=== PATIENT | male | born 1945 | race Caucasian/White ===

== ENCOUNTER 2017-04-02 18:39 | Emergency (ER) | payer MEDICARE, OTHER ==
[~2017-04-02] VITALS: Ht 172.7 cm; Wt 84.0 kg
[2017-04-02 19:07] VITALS: BP 142/72; PULSE 63; RESP 18; TEMP 98.2; O2SAT 99
[2017-04-02] MEDS ORDERED: ALLO300T2 PO (19:20)
[2017-04-02] MEDS ORDERED: LISI-515 PO (19:20)
[2017-04-02] MEDS ORDERED: OMEP20TA93 PO (19:20)
[2017-04-02] MEDS ORDERED: METH2.5T PO (19:20)
--- NOTE | 2017-04-02 20:27 | PD ---
HPI Chief Complaint: Musculoskeletal Complaint Time Seen by Provider: 19:45 Travel History International Travel<30 days: No Contact w/Intl Traveler<30days: No Traveled to known affect area: No History of Present Illness HPI This is a 71-year-old male here with left wrist pain after he had a mechanical trip and fall falling onto an outstretched hand. Patient fell to the ground injuring his left wrist and also contusing his left chest wall. He denies head injury or loss of consciousness. Patient is not anticoagulated. He denies headache, visual changes, neck pain, chest pain, shortness of breath, abdominal pain, paresthesia or weakness of extremity. His pain is localized to the wrist which is worse with movement and relieved with rest. PFSH Past Medical History Medical History: Denies Significant Hx Cerebrovascular Accident: Yes Diminished Hearing: No Hypertension: Yes Medical other: Yes (gout) Immunizations Current: No Tetanus Vaccination: Unknown Influenza Vaccination: No Past Surgical History Surgical History: No Previous Surgery Social History Alcohol Use: Yes (8-10 week) Tobacco Use: No Substance Use: No Allergies-Medications (Allergen,Severity, Reaction): Coded Allergies: No Known Allergies (Verified Allergy, Unknown, 04/02/17) Reported Meds & Prescriptions Reported Meds & Active Scripts Active [place] (Hydrocodone-Acetaminophen) 5 Mg-325 Mg Tab 1 Tab PO Q6H PRN Reported Methotrexate 2.5 Mg Tab 2.5 Mg PO WED,TU Allopurinol 300 Mg Tab 300 Mg PO DAILY Omeprazole 20 Mg Tab 20 Mg PO DAILY Lisinopril 20 Mg Tab 20 Mg PO DAILY Review of Systems Except as stated in HPI: all other systems reviewed are Neg General / Constitutional: No: Fever Eyes: No: Visual changes HENT: No: Headaches Cardiovascular: No: Chest Pain or Discomfort Respiratory: No: Shortness of Breath Gastrointestinal: No: Abdominal Pain Genitourinary: No: Dysuria Physical Exam Narrative GENERAL: Alert and well-appearing 71 year old male. SKIN: Warm and dry. HEAD: Normocephalic. Atraumatic EYES: No injection or drainage. NECK: Supple, trachea midline. No cervical midline tenderness CARDIOVASCULAR: Regular rate and rhythm without murmurs, gallops, or rubs. Mild left anterior chest wall tenderness. No crepitus felt. RESPIRATORY: Breath sounds equal bilaterally. No accessory muscle use. GASTROINTESTINAL: Abdomen soft, non-tender, nondistended. MUSCULOSKELETAL: No cyanosis, or edema. Left upper extremity: Notable swelling and mild tenderness to the wrist medial aspect. No deformity. 2+ radial pulse. Patient is able to flex and extend the wrist although this elicits pain. Normal sensation of the fingers. Brisk cap refill. BACK: Nontender without obvious deformity. No CVA tenderness. Data Data Last Documented VS Vital Signs Date Time Temp Pulse Resp B/P (MAP) Pulse Ox O2 Delivery O2 Flow Rate FiO2 04/02/17 19:07 98.2 63 18 142/72 (95) 99 Orders Orders Wrist, Complete ([id number]) (04/02/17 ) Chest, Single Ap (04/02/17 ) Splint Or Brace Apply/Monitor (04/02/17 20:31) [facility] Medical Decision Making Medical Screen Exam Complete: Yes Emergency Medical Condition: Yes Differential Diagnosis Wrist Fracture, contusion, sprain. Rib fracture versus contusion versus pneumothorax Narrative Course 71-year-old male here with left wrist and left chest wall pain after he fell from a standing position. The patient is well-appearing. The extremity is neurovascularly intact. Left wrist x-ray: Nondisplaced Distal radius fracture Chest x-ray: Normal chest Findings discussed with patient and family. Patient put in a sugar tong splint. Instructed to the follow-up with orthopedic. Patient is stable and ready for discharge Diagnosis Primary Impression: Distal radius fracture, left Qualified Codes: S52.502A - Unspecified fracture of the lower end of left radius, initial encounter for closed fracture Additional Impression: Chest wall contusion Qualified Codes: S20.212A - Contusion of left front wall of thorax, initial encounter Referrals: Kaz Cantu MD Orthopedist Additional Instructions: Splint in place until follow-up with orthopedic Pain medication as prescribed. Ice and elevate the extremity. Return if he developed new or worsening symptoms. Scripts Hydrocodone-Acetaminophen ([place]) 5 Mg-325 Mg Tab 1 TAB PO Q6H Y for PAIN, #12 TAB 0 Refills Prov: Janet Finnegan 04/02/17 Disposition: 01 DISCHARGE HOME Condition: Stable Janet Finnegan Apr 02, 2017 20:27
[2017-04-02] MEDS ORDERED: NORC5TAB PO (20:33)
--- NOTE | 2017-04-02 21:03 | RADRPT ---
EXAM DATE/TIME: 04/02/2017 20:10 [facility] COMPARISON: No previous studies available for comparison. INDICATIONS : Left lateral wrist pain post fall. MEDICAL HISTORY : None. SURGICAL HISTORY : None. ENCOUNTER: Initial ACUITY: 1 day PAIN SCORE: 3/10 LOCATION: Left upper extremity FINDINGS: There is a mildly displaced fracture of the distal radius. No dislocation. No other fractures are linda ntified. CONCLUSION: 1. Mildly displaced fracture of the distal radius. Rashaad Maria MD on April 02, 2017 at 20:59 Board Certified Radiologist. This report was verified electronically.
--- NOTE | 2017-04-02 21:04 | RADRPT ---
EXAM DATE/TIME: 04/02/2017 20:10 [facility] COMPARISON: No previous studies available for comparison. INDICATIONS : Anterior chest pain post fall. MEDICAL HISTORY : None. SURGICAL HISTORY : None. ENCOUNTER: Initial ACUITY: 1 day PAIN SCORE: 3/10 LOCATION: Bilateral chest FINDINGS: A single view of the chest demonstrates the lungs to be symmetrically aerated without evidence of mas s, infiltrate or effusion. The cardiomediastinal contours are unremarkable. Osseous structures are intact. CONCLUSION: 1. No active disease. Minimal linear scarring right lung base. Rashaad Maria MD on April 02, 2017 at 21:01 Board Certified Radiologist. This report was verified electronically.
== END 2017-04-02 21:25 | disposition home or self-care (01) ==
LOC: PHEFT 18:39
DX: S52.502A Unspecified fracture of the lower end of left radius, initial encounter for closed fracture (principal); S20.212A Contusion of left front wall of thorax, initial encounter; I10 Essential (primary) hypertension; M10.9 Gout, unspecified; W01.0XXA Fall on same level from slipping, tripping and stumbling without subsequent striking against object, initial encounter; Z86.73 Personal history of transient ischemic attack (TIA), and cerebral infarction without residual deficits; Z79.899 Other long term (current) drug therapy
CPT/HCPCS: 71045; 73110; 99283

== ENCOUNTER 2017-05-19 13:01 | Inpatient (IN) | payer OTHER, MEDICARE ==
[~2017-05-19] VITALS: Ht 175.3 cm; Wt 86.1 kg
[~2017-05-19 13:01] MED LIST: ALLO300T2 PO; LISI-515 PO; METH2.5T PO; NORC5TAB PO; OMEP20TA93 PO
[2017-05-19] MEDS ORDERED: SODIUM CHLOR 0.9% 1000 ML INJ 1,000 ML IV ONE (13:02)
[2017-05-19 13:03] VITALS: BP 175/82; PULSE 67; RESP 13; O2SAT 97
[2017-05-19 13:05] VITALS: O2SAT 97
[2017-05-19 13:14] VITALS: O2SAT 97
--- NOTE | 2017-05-19 13:18 | RADRPT ---
EXAM DATE/TIME: 05/19/2017 13:06 [facility] COMPARISON: No previous studies available for comparison. INDICATIONS : Stroke Alert- left sided weakness and slurred speech. RADIATION DOSE: 52.83 CTDIvol (mGy) This report was called by Dr. Winn to Dr. Cummins at 1: 13 PM on 05/19/17. MEDICAL HISTORY : Hypertension. SURGICAL HISTORY : Non-responsive. ENCOUNTER: Initial ACUITY: 1 day PAIN SCALE: Non-responsive LOCATION: Bilateral cranial TECHNIQUE: Multiple contiguous axial images were obtained of the head. Using automated exposure control and adj ustment of the mA and/or kV according to patient size, radiation dose was kept as low as reasonably a chievable to obtain optimal diagnostic quality images. DICOM format image data is available electro nically for review and comparison. FINDINGS: No acute hemorrhage, acute infarct, midline shift or extra-axial fluid collections are noted. The ania tricles, sulci and cisterns are normal in size shape and position for the patient's age. There is an old lacunar infarct involving the right chavarria radiata. Periventricular white matter small vessel isc hemic changes are noted bilaterally. The bone windows are unremarkable. CONCLUSION: 1. No acute hemorrhage, acute infarct, mass effect or extra-axial fluid collection. 2. Periventricular white matter small vessel ischemic changes bilaterally. 3. Old lacunar infarct within the right chavarria radiata. Christofer Winn MD on May 19, 2017 at 13:12 Board Certified Radiologist. This report was verified electronically.
[2017-05-19] MEDS ORDERED: IODIXANOL 320 MG/ML 10 ML VIAL (for Rad CT) IVCONTRAST ONE (13:20)
[2017-05-19 13:22] LABS: AUTOMATED NEUTROPHIL # 3.4 TH/MM3 (1.8-7.7); BASOPHIL % 0.8 % (0.0-2.0); EOSINOPHIL # 0.2 TH/MM3 (0-0.4); EOSINOPHIL % 3.3 % (0.0-4.0); HEMOGLOBIN 14.4 GM/DL (13.0-17.0); LYMPH % 19.7 % (9.0-44.0); MEAN CELL VOLUME 92.4 FL (80.0-100.0); MEAN CORPUSCULAR HEMOGLOBIN 31.7 PG (27.0-34.0); MEAN CORPUSCULAR HGB CONC 34.3 % (32.0-36.0); MEAN PLATELET VOLUME 8.1 FL (7.0-11.0); MONO % 9.7 % (0.0-8.0); MONOCYTE # 0.5 TH/MM3 (0-0.9); NEUT % 66.5 % (16.0-70.0); PLATELET COUNT 189 TH/MM3 (150-450); RED BLOOD COUNT 4.54 MIL/MM3 (4.50-5.90)
[2017-05-19] MEDS ORDERED: ALTEPLASE DRIP IV ONE (13:30)
[2017-05-19] MEDS ORDERED: ALTEPLASE BOLUS 9 MG/9 ML SYR IV ONE (13:30)
[2017-05-19] MEDS ORDERED: SODIUM CHLORIDE 0.9% 50 ML BAG IVF ONE (13:30)
[2017-05-19] MEDS ORDERED: niCARdipine INJ 25 MG in SODIUM CHLOR 0.9% 250 ML INJ 240 ML IV PRN (13:30)
[2017-05-19] MEDS ORDERED: MISCELLANEOUS NURSING INFORMATION XX PRN (13:30)
[2017-05-19] MEDS ORDERED: LABETALOL HCL 100 MG/20 ML VIAL IV PUSH ONE (13:30)
--- NOTE | 2017-05-19 13:30 | RADRPT ---
EXAM DATE/TIME: 05/19/2017 13:06 [facility] COMPARISON: No previous studies available for comparison. INDICATIONS : Stroke Alert- Left sided weakness and slurred speech. IV CONTRAST: 73 cc Visipaque (iodixanol) IV RADIATION DOSE: 9.83 CTDIvol (mGy) ; Combined studies MEDICAL HISTORY : Hypertension. SURGICAL HISTORY : Non-responsive. ENCOUNTER: Initial ACUITY: 1 day PAIN SCALE: Non-responsive LOCATION: Bilateral cranial TECHNIQUE: Volumetric scanning was performed using a multi-row detector CT scanner. The data was post processed with a variety of visualization algorithms including full volume maximum intensity projection, multi -planar sliding thin slab reformation, curved planar reformation, and surface rendering techniques. Using automated exposure control and adjustment of the mA and/or kV according to patient size, radiat ion dose was kept as low as reasonably achievable to obtain optimal diagnostic quality images. DICO M format image data is available electronically for review and comparison. FINDINGS: There is excellent visualization of the major intracranial arteries out to the second-order branch ve ssels. There is no evidence for aneurysm, significant narrowing, or vessel truncation. Mild diffuse narrowing of the left proximal posterior artery is noted. No evidence for vascular malformation. CONCLUSION: Mild diffuse narrowing of the left proximal posterior cerebral artery is noted. Christofer Winn MD on May 19, 2017 at 13:23 Board Certified Radiologist. This report was verified electronically.
[2017-05-19 13:32] LABS: PROTHROMBIN TIME - PATIENT 10.2 SEC (9.8-11.6)
--- NOTE | 2017-05-19 13:42 | RADRPT ---
EXAM DATE/TIME: 05/19/2017 13:19 [facility] COMPARISON: No previous studies available for comparison. INDICATIONS : Stroke alert. MEDICAL HISTORY : Hypertension. SURGICAL HISTORY : None. ENCOUNTER: Initial ACUITY: 1 day PAIN SCORE: 0/10 LOCATION: Bilateral chest FINDINGS: A single view of the chest demonstrates the lungs to be symmetrically aerated without evidence of mas s, infiltrate or effusion. Minimal basilar atelectasis. The cardiomediastinal contours are unremarkab le. Osseous structures are intact. CONCLUSION: 1. Minimal basilar atelectasis. No effusion or pneumothorax. Rashaad Maria MD on May 19, 2017 at 13:36 Board Certified Radiologist. This report was verified electronically.
--- NOTE | 2017-05-19 13:54 | RADRPT ---
EXAM DATE/TIME: 05/19/2017 13:06 [facility] COMPARISON: CTA BRAIN W 3D RECON, May 19, 2017, 13:06. INDICATIONS : Stroke Alert- Left sided weakness and slurred speech. IV CONTRAST: 73 cc Visipaque (iodixanol) IV RADIATION DOSE: 9.83 CTDIvol (mGy) ; Combined studies MEDICAL HISTORY : Hypertension. SURGICAL HISTORY : Non-responsive. ENCOUNTER: Initial ACUITY: 1 day PAIN SCALE: Non-responsive LOCATION: Left cranial Elevated flow velocities and ICA/CCA ratios have been found to correlate with increased degrees of vessel stenosis, calculated as percentage of diameter relative to a normal segment of distal ICA/CCA. TECHNIQUE: Volumetric scanning was performed using a multirow detector CT scanner. The data was post processed with a variety of visualization algorithms including full-volume maximum intensity projection, multip lanar sliding thin-slab reformation, curved-planar reformation, and surface-rendering techniques. Us ing automated exposure control and adjustment of the mA and/or kV according to patient size, radiatio n dose was kept as low as reasonably achievable to obtain optimal diagnostic quality images. DICOM f ormat image data is available electronically for review and comparison. FINDINGS: AORTIC ARCH: Two-vessel bovine type arch anatomy. No mild calcified plaque at the origin of the left subclavian ar michelle without significant flow-limiting stenosis. RIGHT CAROTID: The common carotid artery is intact. Bulky eccentric calcified plaque extending from the distal carot id bulb the origin of the internal carotid artery with resultant approximate 50% stenosis. Internal c arotid artery is otherwise patent to the skull base. The external carotid artery is intact. LEFT CAROTID: The common carotid artery is intact. The carotid bulb has a normal configuration without ulceration or narrowing. Tandem mild calcified plaque in the origin of the internal carotid artery with resultan t less than 10% stenosis. Mild plaque in the origin of the external carotid artery with resultant les s than 10% stenosis. VERTEBRALS: Mild plaque at the origin of the vertebral arteries with [id number] stenosis of the left verteb ral origin. CONCLUSION: 1. Bulky eccentric calcified plaque extending from the distal right carotid bulb to the origin of the internal carotid artery with resultant 50% stenosis. 2. Mild left carotid plaque without significant flow limiting stenosis. 3. Mild to moderate stenosis of the left vertebral artery origin secondary to calcified plaque. Leonides Alvarez MD on May 19, 2017 at 13:44 Board Certified Radiologist. This report was verified electronically.
--- NOTE | 2017-05-19 14:02 | PD.CONS ---
History of Present Illness Service Neurology Consult Requested By er Reason for Consult stroke alert Primary Care Physician Unknown History of Present Illness 71 y/o m called for stroke alert for speech changes. time of onset approx 45 mins prior to er arrival. difficulty getting words out and left facial weakness. ct brain naicp. visiting from [place]. hx of similar symptoms 20 years ago that resolved. does not take antiplatelets daily. bp 170's/80's in er. glucose 95. took 2 aspirin today. denies any headache/neck pain. no vision loss or focal weakness. PFSH Past Medical History tia/stroke, htn, psoriasis Past Surgical History Surgical History: No Previous Surgery Social History Alcohol Use: Yes (8-10 week) Tobacco Use: No Substance Use: No Allergies-Medications (Allergen,Severity, Reaction): Coded Allergies: No Known Allergies (Verified Allergy, Unknown, 04/02/17) Reported Meds & Prescriptions Reported Meds & Active Scripts Active [place] (Hydrocodone-Acetaminophen) 5 Mg-325 Mg Tab 1 Tab PO Q6H PRN Reported Methotrexate 2.5 Mg Tab 2.5 Mg PO WED,TU Allopurinol 300 Mg Tab 300 Mg PO DAILY Omeprazole 20 Mg Tab 20 Mg PO DAILY Lisinopril 20 Mg Tab 20 Mg PO DAILY Review of Systems Except as stated in HPI: all other systems reviewed are Neg Review of Systems All other ROS: ROS reviewed as documented in chart Past Family Social History Allergies: Coded Allergies: No Known Allergies (Verified Allergy, Unknown, 04/02/17) Active Ordered Medications Current Medications Medications (Trade) Dose Ordered Sig/Amarilys Route Start Time Stop Time Status Last Admin Sodium Chloride 1,000 ml @ 70 mls/hr [id number] ONCE IV 05/19/17 13:02 05/20/17 03:19 05/19/17 13:13 Nicardipine HCl 25 mg/Sodium Chloride 250 ml @ 50 mls/hr TITRATE PRN IV 05/19/17 13:30 Alteplase, Recombinant 71.5 mg/Syringe / Bag 71.5 ml @ 71.5 mls/hr ONCE ONCE IV 05/19/17 13:30 05/19/17 14:29 05/19/17 13:34 Miscellaneous Information No Heparin, Warfarin, Aspir... UNSCH PRN XX 05/19/17 13:30 05/20/17 13:29 Exam I&O / VS Vital Signs Date Time Temp Pulse Resp B/P (MAP) Pulse Ox O2 Delivery O2 Flow Rate FiO2 05/19/17 13:14 97 21 05/19/17 13:05 97 05/19/17 13:05 Nasal Cannula 2.00 05/19/17 13:03 67 13 175/82 (113) 97 General: Alert and Oriented, No acute distress Eye: EOMI Respiratory: Non-labored respirations Cardiology: Normal rate Neurologic: Alert, Oriented, Normal sensory, Normal motor, Normal DTR's Psychiatric: Cooperative, Appropriate mood & affect, Normal judgement Exam Comments alert, ox 3, follows, mild dysarthric speech, eomi, vff, able to name objects, left lower facial weakness, no drift no ataxia, sensory nml, no neglect, nihss 2 Review/Management Diagnosis/Plan: (1) Acute lacunar stroke ICD Codes: I63.9 - Cerebral infarction, unspecified Status: Acute Plan: probable lacunar infarct suspect 2/2 chronic htn/small vessel dz r/o partial sz recs tx options d/w pt. he wants iv tpa and understands his nihss is low and he has a good chance of complete recovery. he understands this and 65 chance of ich and elects for tx. he states a friend of his had it 3 weeks ago for stroke and it helped him. post-tpa order set bp <180/100 scd's stroke w/u therapy eval follow exam (2) HTN (hypertension) ICD Codes: I10 - Essential (primary) hypertension Status: Chronic Plan: keep <180/100 (3) Psoriasis ICD Codes: L40.9 - Psoriasis, unspecified Status: Chronic Plan: on mtx Problem Qualifiers (1) HTN (hypertension): Qualified Codes: I10 - Essential (primary) hypertension Irving Castro MD May 19, 2017 14:02
[2017-05-19 14:35] LABS: TROPONIN I LESS THAN 0.02 NG/ML (0.02-0.05)
--- NOTE | 2017-05-19 14:36 | PD ---
HPI Chief Complaint: Stroke Alert Time Seen by Provider: 13:02 Travel History International Travel<30 days: No Contact w/Intl Traveler<30days: No Traveled to known affect area: No History of Present Illness HPI Patient is a 71 year old male BIBEMS as a stroke alert. He was at the dog track when he was outside with his friend and he noticed he was having difficulty speaking. He says he had a stroke 20 years ago with the same symptoms, but the symptoms had completely resolved. Symptoms started about 45 minutes prior to arrival. He only has a history of high blood pressure, he denies any blood thinner use. He denies any other symptoms and was in his usual state of health prior to the onset. Severity is moderate. PFSH Past Medical History Cerebrovascular Accident: Yes Diminished Hearing: No Hypertension: Yes Immunizations Current: No Tetanus Vaccination: Unknown Influenza Vaccination: No Past Surgical History Surgical History: Unable to Obtain Social History Alcohol Use: Yes (8-10 week) Tobacco Use: No Substance Use: No Allergies-Medications (Allergen,Severity, Reaction): Coded Allergies: No Known Allergies (Verified Allergy, Unknown, 04/02/17) Reported Meds & Prescriptions Reported Meds & Active Scripts Active Reported Methotrexate 2.5 Mg Tab 2.5 Mg PO MON,TUE Lisinopril 20 Mg Tab 20 Mg PO DAILY Review of Systems Except as stated in HPI: all other systems reviewed are Neg General / Constitutional: No: Fever, Chills Eyes: No: Blurred Vision HENT: No: Headaches, Lightheadedness Cardiovascular: No: Chest Pain or Discomfort Respiratory: No: Shortness of Breath Gastrointestinal: No: Nausea, Vomiting Musculoskeletal: No: Myalgias Skin: No Rash Neurologic: Positive: Focal Abnormalities, Slurred Speech Physical Exam Narrative GENERAL: Awake and alert, in no acute distress. SKIN: Warm and dry. HEAD: Atraumatic. Normocephalic. EYES: Pupils equal and round. No scleral icterus. EOMI. ENT: Mucous membranes pink and moist. NECK: Trachea midline. No JVD. CARDIOVASCULAR: Regular rate and rhythm. RESPIRATORY: No accessory muscle use. Clear to auscultation. Breath sounds equal bilaterally. GASTROINTESTINAL: Abdomen soft, non-tender, nondistended. MUSCULOSKELETAL: Extremities without clubbing, cyanosis, or edema. No obvious deformities. NEUROLOGICAL: Awake and alert. Left sided facial droop. Slurring of speech. Equal motor strength, however, left wrist is injured and weak because of this. PSYCHIATRIC: Appropriate mood and affect; insight and judgment normal. Data Data Last Documented VS Vital Signs Date Time Temp Pulse Resp B/P (MAP) Pulse Ox O2 Delivery O2 Flow Rate FiO2 05/19/17 13:14 97 21 05/19/17 13:05 Nasal Cannula 2.00 05/19/17 13:03 67 13 175/82 (113) Orders Orders Diet Npo (05/19/17 Lunch) Activity Bed Rest (05/19/17 ) Electrocardiogram (05/19/17 ) I-Stat Profile (05/19/17 13:02) Prothrombin Time / Inr (Pt) (05/19/17 13:02) Act Partial Throm Time (Ptt) (05/19/17 13:02) Complete Blood Count With Diff (05/19/17 13:02) Fibrinogen (05/19/17 13:02) Creatine Kinase (Cpk) (05/19/17 13:02) Troponin I (05/19/17 13:02) Ua Includes Microscopic (05/19/17 13:02) Drug Screen, Random Urine (05/19/17 13:02) Type And Screen (05/19/17 13:02) Ct Brain W/O Iv Contrast(Rout) (05/19/17 ) Chest, Single Ap (05/19/17 ) Cta Brain W Iv Contrast W 3d (05/19/17 13:02) Cta Neck W Iv Contrast W 3d (05/19/17 13:02) Consult Neurology (05/19/17 ) Blood Glucose (05/19/17 13:02) Ecg Monitoring (05/19/17 13:02) Neuro Checks Q2HX12,Q4H (05/19/17 13:02) Nursing Bedside Swallow Assess .ONCE (05/19/17 13:02) Iv Access Insert/Monitor (05/19/17 13:02) NPO (05/19/17 13:02) Oximetry (05/19/17 13:02) Resp Oxygen Nc Stroke (05/19/17 ) Sodium Chlor 0.9% 1000 Ml Inj (Ns 1000 M (05/19/17 13:02) Cath For Specimen (05/19/17 13:02) (Hub Use Only)Inp Phy Cons/Ref (05/19/17 ) Iodixanol 320 Inj (Rad Ct) (Visipaque 32 (05/19/17 13:20) Labetalol Inj (Trandate Inj) (05/19/17 13:30) Nicardipine Inj (Cardene Inj) (05/19/17 13:30) ^ Call Pharmacy (05/19/17 13:22) Nih Stroke Scale - Nihss .ONCE (05/19/17 13:22) Urinary Catheter Insert/Apply (05/19/17 13:22) Anticoagulant Alert (05/19/17 13:22) ^ Post Infusion Restrictions (05/19/17 13:) ^ Medication Alert (05/19/17 13:) Vital Signs (Adult) .As directed (05/19/17:) Notify Dr: Blood Pressure (05/19/17 13:22) ^ Medication Alert (05/19/17 13:22) Alteplase Bolus (Activase Bolus) (05/19/17 13:30) Alteplase Drip (Activase Drip) (05/19/17 13:30) Sodium Chloride 0.9% Inj (Ns Inj) (05/19/17 13:30) Misc Nursing Information (05/19/17 13:30) Resp Oxygen Nc Stroke (05/19/17 ) Eeg Study (05/19/17 ) Mri Brain W/O Contrast (05/19/17 ) Speech Therapy Consult-Eval/Tx (05/19/17 14:02) Ot Request For Service (05/19/17 14:02) Consult Pt Eval & Tx Oob (05/19/17 14:02) Scd Bilateral/Knee High LUIS.QSHIFT (05/19/17 14:02) Westergren Sedimentation Rate (05/19/17 14:02) Vitamin B12 (05/19/17 14:02) Thyroid Stimulating Hormone (05/19/17 14:02) Lipid Profile (05/19/17 14:02) Hemoglobin (Hgb) A1c (05/19/17 14:02) Echo 2d Comp With Doppler (05/19/17 ) Labs Laboratory Tests Test 05/19/17 13:10 White Blood Count 5.0 TH/MM3 Red Blood Count 4.54 MIL/MM3 Hemoglobin 14.4 GM/DL Bedside Hemoglobin 15.3 G/DL Hematocrit 42.0 % Bedside Hematocrit 45.0 % Mean Corpuscular Volume 92.4 FL Mean Corpuscular Hemoglobin 31.7 PG Mean Corpuscular Hemoglobin Concent 34.3 % Red Cell Distribution Width 17.0 % Platelet Count 189 TH/MM3 Mean Platelet Volume 8.1 FL Neutrophils (%) (Auto) 66.5 % Lymphocytes (%) (Auto) 19.7 % Monocytes (%) (Auto) 9.7 % Eosinophils (%) (Auto) 3.3 % Basophils (%) (Auto) 0.8 % Neutrophils # (Auto) 3.4 TH/MM3 Lymphocytes # (Auto) 1.0 TH/MM3 Monocytes # (Auto) 0.5 TH/MM3 Eosinophils # (Auto) 0.2 TH/MM3 Basophils # (Auto) 0.0 TH/MM3 CBC Comment DIFF FINAL Differential Comment Prothrombin Time 10.2 SEC Prothromb Time International Ratio 1.0 RATIO Activated Partial Thromboplast Time 26.6 SEC Fibrinogen 301 mg/dL Bedside Sodium 137 MMOL/L Bedside Potassium 4.1 MMOL/L Bedside Chloride 103 MMOL/L Bedside Blood Urea Nitrogen 19 MG/DL Bedside Creatinine 1.1 MG/DL Bedside Glucose 95 MG/DL Total Creatine Kinase U/L [facility] Medical Decision Making Medical Screen Exam Complete: Yes Emergency Medical Condition: Yes Medical Record Reviewed: Yes Interpretation(s) ECG shows NSR at 66, no ST elevation or depression Differential Diagnosis CVA vs TIA vs ICH Narrative Course Patient is a 71 year old male BIBEMS as a stroke alert. Exam shows left sided facial droop and slurring of speech. IV established, labs sent. Patient taken for CT, which showed no evidence of bleed. Patient consented for TPA after discussion of risks and benefits. He was given 1 dose of Labetalol 20mg for elevated blood pressure. Labs show no acute abnormalities. Patient monitored on TPA with some improvement of his symptoms. He will be admitted for further management. Last 24 hours Impressions Neck CTA 05/19/17 1302 Signed Impressions: Service Date/Time: Friday, May 19, 2017 13:06 - CONCLUSION: 1. Bulky eccentric calcified plaque extending from the distal right carotid bulb to the origin of the internal carotid artery with resultant 50%% stenosis. 2. Mild left carotid plaque without significant flow limiting stenosis. 3. Mild to moderate stenosis of the left vertebral artery origin secondary to calcified plaque. Leonides Alvarez MD Head CTA 05/19/17 1302 Signed Impressions: Service Date/Time: Friday, May 19, 2017 13:06 - CONCLUSION: Mild diffuse narrowing of the left proximal posterior cerebral artery is noted. Christofer Winn MD Head CT 05/19/17 0000 Signed Impressions: Service Date/Time: Friday, May 19, 2017 13:06 - CONCLUSION: 1. No acute hemorrhage, acute infarct, mass effect or extra-axial fluid collection. 2. Periventricular white matter small vessel ischemic changes bilaterally. 3. Old lacunar infarct within the right chavarria radiata. Christofer Winn MD Chest X-Ray 05/19/17 0000 Signed Impressions: Service Date/Time: Friday, May 19, 2017 13:19 - CONCLUSION: 1. Minimal basilar atelectasis. No effusion or pneumothorax. Rashaad Maria MD Critical Care Narrative Aggregate critical care time was 40 minutes. Time to perform other separately billable procedures was not included in the critical care time. My time did not include minutes spent treating any other patients simultaneously or on activities that did not directly contribute to the patient's treatment. The services I provided to this patient were to treat and/or prevent clinically significant deterioration that could result in: Serious illness or I provided critical care services requiring my management, as noted below: Chart data review, documentation time, medication orders and management, vital sign assessments/reviewing monitor data, ordering and reviewing lab tests, ordering and interpreting/reviewing x-rays and diagnostic studies, care of the patient and discussion of the patient with the admitting physicians. Diagnosis Primary Impression: CVA (cerebral vascular accident) Qualified Codes: I63.9 - Cerebral infarction, unspecified Admitting Information Admitting Physician Requests: Admit Gudelia Cummins MD May 19, 2017 14:36
--- NOTE | 2017-05-19 15:27 | HHI.HP ---
HPI Service Critical Care Medicine Primary Care Physician Unknown Admission Diagnosis CVA Diagnosis: Travel History International Travel<30 Days: No Contact w/Intl Traveler <30 Da: No Traveled to Known Affected Are: No History of Present Illness HPI Patient is a 71 year old male BIBEMS as a stroke alert. He was at the dog track when he was outside with his friend and he noticed he was having difficulty speaking. He says he had a stroke 20 years ago with the same symptoms, but the symptoms had completely resolved. Symptoms started about 45 minutes prior to arrival. He only has a history of high blood pressure, he denies any blood thinner use. He denies any other symptoms and was in his usual state of health prior to the onset. CT done in the ER was negative for bleed. Patient was administered IV TPA and evaluated by neurology. Patient is being admitted by critical care medicine service to the ICU. I evaluated the patient in the ER. At that time he was laying in the ER stretcher appeared comfortable and not in any acute distress. According to him his speech was significantly better and per his his facial weakness also appeared to be improving. He denied any weakness in either extremities. Denied any loss of consciousness or nausea vomiting headache visual disturbance. History was obtained by discussion with patient and his as well as reviewing records and discussion with ER physician. History PFSH Past Medical History Cerebrovascular Accident: Yes Diminished Hearing: No Hypertension: Yes Immunizations Current: No Tetanus Vaccination: Unknown Influenza Vaccination: No Past Surgical History Surgical History: Unable to Obtain Social History Alcohol Use: Yes (8-10 week) Tobacco Use: No Substance Use: No Allergies-Medications Allergies-Medications (Allergen,Severity, Reaction): Coded Allergies: No Known Allergies (Verified Allergy, Unknown, 04/02/17) Reported Meds & Prescriptions Reported Meds & Active Scripts Active Reported Methotrexate 2.5 Mg Tab 2.5 Mg PO MON,TUE Lisinopril 20 Mg Tab 20 Mg PO DAILY ROS Review of Systems Except as stated in HPI: all other systems reviewed are Neg General / Constitutional: No: Fever, Chills Eyes: No: Blurred Vision HENT: No: Headaches, Lightheadedness Cardiovascular: No: Chest Pain or Discomfort Respiratory: No: Shortness of Breath Gastrointestinal: No: Nausea, Vomiting Musculoskeletal: No: Myalgias Skin: No Rash Neurologic: Positive: Focal Abnormalities, Slurred Speech Past Family Social History Allergies: Coded Allergies: No Known Allergies (Verified Allergy, Unknown, 04/02/17) Physical Exam Vital Signs Vital Signs Date Time Temp Pulse Resp B/P (MAP) Pulse Ox O2 Delivery O2 Flow Rate FiO2 05/19/17 13:14 97 21 05/19/17 13:05 97 05/19/17 13:05 Nasal Cannula 2.00 05/19/17 13:03 67 13 175/82 (113) 97 Physical Exam Narrative GENERAL: Awake and alert, in no acute distress. SKIN: Warm and dry. HEAD: Atraumatic. Normocephalic. EYES: Pupils equal and round. No scleral icterus. EOMI. ENT: Mucous membranes pink and moist. NECK: Trachea midline. No JVD. CARDIOVASCULAR: Regular rate and rhythm. RESPIRATORY: No accessory muscle use. Clear to auscultation. Breath sounds equal bilaterally. GASTROINTESTINAL: Abdomen soft, non-tender, nondistended. MUSCULOSKELETAL: Extremities without clubbing, cyanosis, or edema. No obvious deformities. NEUROLOGICAL: Awake and alert. Left sided facial droop. Slurring of speech. Equal motor strength, however, left wrist is injured and weak because of this. PSYCHIATRIC: Appropriate mood and affect; insight and judgment normal. Laboratory Laboratory Tests Test 05/19/17 13:10 White Blood Count 5.0 Red Blood Count 4.54 Hemoglobin 14.4 Bedside Hemoglobin 15.3 Hematocrit 42.0 Bedside Hematocrit 45.0 Mean Corpuscular Volume 92.4 Mean Corpuscular Hemoglobin 31.7 Mean Corpuscular Hemoglobin Concent 34.3 Red Cell Distribution Width 17.0 Platelet Count 189 Mean Platelet Volume 8.1 Neutrophils (%) (Auto) 66.5 Lymphocytes (%) (Auto) 19.7 Monocytes (%) (Auto) 9.7 Eosinophils (%) (Auto) 3.3 Basophils (%) (Auto) 0.8 Neutrophils # (Auto) 3.4 Lymphocytes # (Auto) 1.0 Monocytes # (Auto) 0.5 Eosinophils # (Auto) 0.2 Basophils # (Auto) 0.0 CBC Comment DIFF FINAL Differential Comment Prothrombin Time 10.2 Prothromb Time International Ratio 1.0 Activated Partial Thromboplast Time 26.6 Fibrinogen 301 Bedside Sodium 137 Bedside Potassium 4.1 Bedside Chloride 103 Bedside Blood Urea Nitrogen 19 Bedside Creatinine 1.1 Bedside Glucose 95 Total Creatine Kinase 92 Troponin I LESS THAN 0.02 Result Diagram: 05/19/17 1310 Imaging Last Impressions Neck CTA 05/19/17 1302 Signed Impressions: Service Date/Time: Friday, May 19, 2017 13:06 - CONCLUSION: 1. Bulky eccentric calcified plaque extending from the distal right carotid bulb to the origin of the internal carotid artery with resultant 50%% stenosis. 2. Mild left carotid plaque without significant flow limiting stenosis. 3. Mild to moderate stenosis of the left vertebral artery origin secondary to calcified plaque. Leonides Alvarez MD Head CTA 05/19/17 1302 Signed Impressions: Service Date/Time: Friday, May 19, 2017 13:06 - CONCLUSION: Mild diffuse narrowing of the left proximal posterior cerebral artery is noted. Christofer Winn MD Head CT 05/19/17 0000 Signed Impressions: Service Date/Time: Friday, May 19, 2017 13:06 - CONCLUSION: 1. No acute hemorrhage, acute infarct, mass effect or extra-axial fluid collection. 2. Periventricular white matter small vessel ischemic changes bilaterally. 3. Old lacunar infarct within the right chavarria radiata. Christofer Winn MD Chest X-Ray 05/19/17 0000 Signed Impressions: Service Date/Time: Friday, May 19, 2017 13:19 - CONCLUSION: 1. Minimal basilar atelectasis. No effusion or pneumothorax. Rashaad Maria MD Capbuddyi VTE Risk Assessment Caprini VTE Risk Assessment: Mod/High Risk (score >= 2) Caprini Risk Assessment Model Point Value = 1 Point Value = 2 Point Value = 3 Point Value = 5 Age 41-60 Minor surgery BMI > 25 kg/m2 Swollen legs Varicose veins or History of unexplained or recurrent spontaneous Oral contraceptives or hormone replacement Sepsis (< 1 month) Serious lung disease, including pneumonia (< 1 month) Abnormal pulmonary function Acute myocardial infarction Congestive heart failure (< 1 month) History of inflammatory bowel disease Medical patient at bed rest Age 61-74 Arthroscopic surgery Major open surgery (> 45 min) Laparoscopic surgery (> 45 min) Malignancy Confined to bed (> 72 hours) Immobilizing plaster cast Central venous access Age >= 75 History of VTE Family history of VTE Factor V Leiden Prothrombin [id number] Lupus anticoagulant Anticardiolipin antibodies Elevated serum homocysteine Heparin-induced thrombocytopenia Other congenital or acquired thrombophilia Stroke (< 1 month) Elective arthroplasty Hip, pelvis, or leg fracture Acute spinal cord injury (< 1 month) Prophylaxis Regimen Total Risk Factor Score Risk Level Prophylaxis Regimen 0-1 Low Early ambulation 2 Moderate Order ONE of the following: *Sequential Compression Device (SCD) *Heparin 5000 units SQ BID 3-4 Higher Order ONE of the following medications: *Heparin 5000 units SQ TID *Enoxaparin/Lovenox 40 mg SQ daily (WT < 150 kg, CrCl > 30 mL/min) *Enoxaparin/Lovenox 30 mg SQ daily (WT < 150 kg, CrCl > 10-29 mL/min) *Enoxaparin/Lovenox 30 mg SQ BID (WT < 150 kg, CrCl > 30 mL/min) AND/OR *Sequential Compression Device (SCD) 5 or more Highest Order ONE of the following medications: *Heparin 5000 units SQ TID (Preferred with Epidurals) *Enoxaparin/Lovenox 40 mg SQ daily (WT < 150 kg, CrCl > 30 mL/min) *Enoxaparin/Lovenox 30 mg SQ daily (WT < 150 kg, CrCl > 10-29 mL/min) *Enoxaparin/Lovenox 30 mg SQ BID (WT < 150 kg, CrCl > 30 mL/min) AND *Sequential Compression Device (SCD) Assessment and Plan Assessment and Plan 71-year-old male with: Ischemic stroke status post thrombolysis Hypertension History of psoriasis Plan: Neuro: Admitted to [facility]. Status post TPA. Follow neuro checks per stroke protocol Stroke workup in progress. CTA revealed 50% right ICA stenosis. Further recommendations per neurology. Repeat head CT in 24 hours. Awaiting MRI brain. Neurology consulted and following. Cardiovascular: IV hydration, labetalol when necessary to keep SBP below 1 80 mmHg. Nicardipine drip if needed. Pulmonary: Supplemental O2 to keep O2 sat over 94% as needed GI/liver: Advance diet following speech and swallow evaluation further recommendations. Renal/: IV hydration, follow intake output, monitor and replete electro lites , follow BUN/creatinine. ID: No indication for antibiotics at this time Heme: Follow CBC Skin: Continue methotrexate for psoriasis Endocrine: Watch for hyperglycemia, SSI for glycemic control if needed. Prophylaxis: SCDs. No heparin or Lovenox till cleared by neurology. Patient will be transferred to hospitalist service tomorrow if doing well. Devyn Jackson MD May 19, 2017 15:27
[2017-05-19] MEDS ORDERED: DEXTROSE 50% IN WATER 50 ML VIAL(D50) IV PUSH PRN (15:30)
[2017-05-19] MEDS ORDERED: LABETALOL HCL 100 MG/20 ML VIAL IV PUSH PRN (15:30)
[2017-05-19] MEDS ORDERED: GLUCAGON 1 MG/ML VIAL OTHER PRN (15:30)
[2017-05-19] MEDS ORDERED: SODIUM CHLORIDE 0.9% FLUSH 10 ML FLUSH IV FLUSH PRN (15:30)
[2017-05-19 15:48] LABS: CHOLESTEROL 210 MG/DL (120-200); TRIGLYCERIDES 358 MG/DL (42-150)
[2017-05-19 16:21] LABS: CHOLESTEROL/ HDL RATIO 4.29 RATIO; HDL CHOLESTEROL 48.9 MG/DL (40.0-60.0); LDL CHOLESTEROL 90 MG/DL (0-99)
[2017-05-19 16:41] LABS: HEMOGLOBIN A1C 5.4 % (4.3-6.0)
[2017-05-19 16:43] VITALS: BP 142/71
[2017-05-19] MEDS: INSULIN ASPART SUPPLEMENTAL SCALE SQ SCH ×2 (17:00→21:00)
[2017-05-19 17:06] LABS: BILIRUBIN, URINE NEG (NEG); BLOOD, URINE NEG (NEG); GLUCOSE,URINE NEG (NEG); KETONE, URINE NEG (NEG); NITRITE,URINE NEG (NEG); PH, URINE 5.5 (5.0-8.5); URINE COLOR LIGHT-YELLOW (YELLW/STRAW); URINE LEUKOCYTE ESTERASE NEG (NEG)
--- NOTE | 2017-05-19 17:26 | RADRPT ---
EXAM DATE/TIME: 05/19/2017 16:57 [place] COMPARISON: No previous studies available for comparison. INDICATIONS : Slurred speech. Left facial droop. CVA. MEDICAL HISTORY : Hypertension. Cerebrovascular disease. SURGICAL HISTORY : Bilateral knee arthroscopy. ENCOUNTER: Subsequent ACUITY: 1 day PAIN SCORE: 0/10 LOCATION: head. TECHNIQUE: Multiplanar, multisequence MRI of the brain was performed without contrast. FINDINGS: There is a subacute small infarct in the posterior right frontal lobe. Remote lacunar infarct present in right chavarria radiata. Mild white matter ischemic changes. No intracranial mass, hemorrhage or shift. No hydrocephalus. No abnormal extra-axial fluid collection s. CONCLUSION: 1. Small subacute infarct in the posterior right frontal lobe without evidence for mass, hemorrhage. Remote lacunar infarct right chavarria radiata. Minimal white matter ischemic change. Rashaad Maria MD on May 19, 2017 at 17:18 Board Certified Radiologist. This report was verified electronically.
[2017-05-19] MEDS: SODIUM CHLORIDE 0.9% FLUSH 10 ML FLUSH IV FLUSH SCH (21:00)
[2017-05-19] MEDS ORDERED: ATORVASTATIN 10 MG TAB PO SCH (21:00)
[2017-05-19 23:00] VITALS: PULSE 59
[2017-05-20] MEDS: INSULIN ASPART SUPPLEMENTAL SCALE SQ SCH ×4 (08:00→21:00)
[2017-05-20 08:15] VITALS: PULSE 56
[2017-05-20] MEDS: SODIUM CHLORIDE 0.9% FLUSH 10 ML FLUSH IV FLUSH SCH ×2 (09:00→23:27)
--- NOTE | 2017-05-20 09:19 | HHI.PR ---
Review/Management Diagnosis/Plan: (1) Acute lacunar stroke ICD Codes: I63.9 - Cerebral infarction, unspecified Status: Acute Plan: lacunar infarct; mri brain + rt high dwi infarct rt carotid 50% stenosis suspect 2/2 chronic htn/small vessel dz vs rt carotid moderate hld recs repeat ct brain per protocol increase statin dose Dr. Barney kearney of rt carotid will obtain carotid u/s as well echo pending full therapy d/w pt/spouse follow exam (2) HTN (hypertension) ICD Codes: I10 - Essential (primary) hypertension Status: Chronic Plan: keep <180/100 (3) Psoriasis ICD Codes: L40.9 - Psoriasis, unspecified Status: Chronic Plan: on mtx Subjective Subjective Comments No acute events reported feels better No headache No chest pain No dyspnea Active Medications Current Medications Medications (Trade) Dose Ordered Sig/Amarilys Route Start Time Stop Time Status Last Admin Nicardipine HCl 25 mg/Sodium Chloride 250 ml @ 50 mls/hr TITRATE PRN IV 05/19/17 13:30 Miscellaneous Information No Heparin, Warfarin, Aspir... UNSCH PRN XX 05/19/17 13:30 05/20/17 13:29 (NS Flush) 2 ml BID IV FLUSH 05/19/17 21:00 05/20/17 09:00 (NS Flush) 2 ml UNSCH PRN IV FLUSH 05/19/17 15:30 (Trandate Inj) 10 mg Q2H PRN IV PUSH 05/19/17 15:30 (Lipitor) 10 mg HS PO 05/19/17 21:00 (NovoLOG SUPPLEMENTAL SCALE) 1 ACHS SQ 05/19/17 17:00 (D50w (Vial) Inj) 50 ml UNSCH PRN IV PUSH 05/19/17 15:30 (Glucagon Inj) 1 mg UNSCH PRN OTHER 05/19/17 15:30 Allergies Allergies Coded Allergies No Known Allergies (Verified Allergy, Unknown, 04/02/17) Review of Systems All other ROS: ROS reviewed as documented in chart Exam I&O / VS Vital Signs Date Time Temp Pulse Resp B/P (MAP) Pulse Ox O2 Delivery O2 Flow Rate FiO2 05/19/17 23:00 59 05/19/17 19:00 99 Room Air 05/19/17 16:43 67 17 142/71 (94) 100 05/19/17 13:14 97 21 05/19/17 13:05 97 05/19/17 13:05 Nasal Cannula 2.00 05/19/17 13:03 67 13 175/82 (113) 97 General: Alert and Oriented, No acute distress Eye: EOMI Respiratory: Non-labored respirations Cardiology: Normal rate Neurologic: Alert, Oriented, Normal sensory, Normal motor, Normal DTR's Psychiatric: Cooperative, Appropriate mood & affect, Normal judgement Exam Comments alert, ox 3, follows, speech more fluent, eomi, vff, able to name objects, no drift no ataxia, sensory nml, no neglect, nihss 1 Objective Micro and Labs Laboratory Tests Test 05/19/17 13:10 05/19/17 16:30 05/19/17 17:45 White Blood Count 5.0 Red Blood Count 4.54 Hemoglobin 14.4 Bedside Hemoglobin 15.3 Hematocrit 42.0 Bedside Hematocrit 45.0 Mean Corpuscular Volume 92.4 Mean Corpuscular Hemoglobin 31.7 Mean Corpuscular Hemoglobin Concent 34.3 Red Cell Distribution Width 17.0 Platelet Count 189 Mean Platelet Volume 8.1 Neutrophils (%) (Auto) 66.5 Lymphocytes (%) (Auto) 19.7 Monocytes (%) (Auto) 9.7 Eosinophils (%) (Auto) 3.3 Basophils (%) (Auto) 0.8 Neutrophils # (Auto) 3.4 Lymphocytes # (Auto) 1.0 Monocytes # (Auto) 0.5 Eosinophils # (Auto) 0.2 Basophils # (Auto) 0.0 CBC Comment DIFF FINAL Differential Comment Erythrocyte Sedimentation Rate 3 Prothrombin Time 10.2 Prothromb Time International Ratio 1.0 Activated Partial Thromboplast Time 26.6 Fibrinogen 301 Bedside Sodium 137 Bedside Potassium 4.1 Bedside Chloride 103 Bedside Blood Urea Nitrogen 19 Bedside Creatinine 1.1 Bedside Glucose 95 Hemoglobin A1c 5.4 Total Creatine Kinase 92 Troponin I LESS THAN 0.02 Triglycerides Level 358 Cholesterol Level 210 LDL Cholesterol 90 HDL Cholesterol 48.9 Cholesterol/HDL Ratio 4.29 Vitamin B12 Level 523 Thyroid Stimulating Hormone 3rd Gen 3.840 Urine Color LIGHT-YELLOW Urine Turbidity CLEAR Urine pH 5.5 Urine Specific [place] 1.021 Urine Protein NEG Urine Glucose (UA) NEG Urine Ketones NEG Urine Occult Blood NEG Urine Nitrite NEG Urine Bilirubin NEG Urine Urobilinogen LESS THAN 2.0 Urine Leukocyte Esterase NEG Urine RBC LESS THAN 1 Urine Opiates Screen NEG Urine Barbiturates Screen NEG Urine Amphetamines Screen NEG Urine Benzodiazepines Screen NEG Urine Cocaine Screen NEG Urine Cannabinoids Screen NEG Nasal Screen MRSA (PCR) MRSA NOT DETECTED Problem Qualifiers (1) HTN (hypertension): Qualified Codes: I10 - Essential (primary) hypertension Irving Castro MD May 20, 2017 09:19
--- NOTE | 2017-05-20 11:53 | MG ---
cc: Irving Castro MD EEG RECORD #[id number] A 71-year-old, history of difficulty with speech, previous occurrence. 8-9 Hz alpha activity, 20-50 microvolts observed. Good anterior to posterior gradient. Attenuation background slowing with transition into drowsy state. Stage I sleep with vertex waves. Bilateral temporal slowing. sharp transients of drowsiness. Tiny sharp transients, epoch 87. Single EKG showing sinus rhythm. INTERPRETATION: Normal awake, sleep electroencephalogram. Clinical correlation. Irving Castro MD MG/rt , 08:49 PM , 09:03 PM MTDD
--- NOTE | 2017-05-20 13:54 | EKG ---
Date Performed: 05/19/2017 Time Performed: 13:26:49 PTAGE: 71 years EKG: Sinus rhythm NORMAL ECG PREVIOUS TRACING : 01/22/2003 04.46 DOCTOR: Corina Castillo Interpretating Date/Time 05/20/2017 13:51:13
--- NOTE | 2017-05-20 14:45 | PD.CAR.PN ---
CVT Progress Note Subjective/Hospital Course: Patient with stroke post TPA lysis Bulky 50% carotid stenosis of the right common and proximal internal carotid artery Depending on today's repeat scan, in all likelihood will go ahead with surgery on Wednesday Full consult dictated Thanks J Objective: Vital Signs Date Time Temp Pulse Resp B/P (MAP) Pulse Ox O2 Delivery O2 Flow Rate FiO2 05/20/17 08:15 99 Room Air 05/20/17 08:15 56 05/19/17 23:00 59 05/19/17 19:00 99 Room Air 05/19/17 16:43 67 17 142/71 (94) 100 Result Diagram: 05/19/17 1310 Brando Abraham MD May 20, 2017 14:45
[2017-05-20 15:00] VITALS: PULSE 68
--- NOTE | 2017-05-20 15:04 | RADRPT ---
EXAM DATE/TIME: 05/20/2017 14:20 [facility] COMPARISON: No previous studies available for comparison. INDICATIONS : Follow up 25 hours post TPA RADIATION DOSE: 47.12 CTDIvol (mGy) MEDICAL HISTORY : Hypertension. SURGICAL HISTORY : None. ENCOUNTER: Initial ACUITY: 2 days PAIN SCALE: 0/10 LOCATION: cranial TECHNIQUE: Multiple contiguous axial images were obtained of the head. Using automated exposure control and adj ustment of the mA and/or kV according to patient size, radiation dose was kept as low as reasonably a chievable to obtain optimal diagnostic quality images. DICOM format image data is available electro nically for review and comparison. FINDINGS: CEREBRUM: The ventricles are normal for age. No evidence of midline shift, mass lesion, hemorrhage or acute in farction. No extra-axial fluid collections are seen. POSTERIOR FOSSA: The cerebellum and brainstem are intact. The 4th ventricle is midline. The cerebellopontine angle i s unremarkable. EXTRACRANIAL: The visualized portion of the orbits is intact. SKULL: The calvaria is intact. No evidence of skull fracture. CONCLUSION: 1. No acute intracranial abnormalities. Rashaad Maria MD on May 20, 2017 at 14:58 Board Certified Radiologist. This report was verified electronically.
--- NOTE | 2017-05-20 15:26 | HHI.CCPN ---
Subjective Remarks/Hospital Course 05/20: Patient is a 71 year old male BIBEMS as a stroke alert. [place] the [place] he was outside with his friend and he noticed he was having difficulty speaking. He says he had a stroke 20 years ago with the same symptoms, but the symptoms had completely resolved. Symptoms started about 45 minutes prior to arrival. He only has a history of high blood pressure, he denies any blood thinner use. He denies any other symptoms and was in his usual state of health prior to the onset. CT done in the ER was negative for bleed. Patient was administered IV TPA and evaluated by neurology. Patient is being admitted by critical care medicine service to the ICU. I evaluated the patient in the ER. At that time he was laying in the ER stretcher appeared comfortable and not in any acute distress. According to him his speech was significantly better and per his his facial weakness also appeared to be improving. He denied any weakness in either extremities. Denied any loss of consciousness or nausea vomiting headache visual disturbance. History was obtained by discussion with patient and his as well as reviewing records and discussion with ER physician. 05/21: Resting comfortably. Left-sided facial weakness significantly improved. CTA brain with 50% right internal carotid artery stenosis. Repeat CT head this afternoon with no evidence of bleeding. Objective Vital Signs Date Time Temp Pulse Resp B/P (MAP) Pulse Ox O2 Delivery O2 Flow Rate FiO2 05/20/17 15:00 68 05/20/17 08:15 99 Room Air 05/19/17 16:43 17 142/71 (94) 05/19/17 13:14 21 05/19/17 13:05 2.00 Intake and Output 05/20/17 05/20/17 05/21/17 08:00 16:00 00:00 Intake Total 1000 ml Output Total 1200 ml Balance -200 ml Result Diagram: 05/19/17 1310 Imaging Last Impressions Head CT 05/20/17 1300 Signed Impressions: Service Date/Time: May 14:20 - CONCLUSION: 1. No acute intracranial abnormalities. Rashaad Maria MD Neck CTA 05/19/17 1302 Signed Impressions: Service Date/Time: Friday, May 19, 2017 13:06 - CONCLUSION: 1. Bulky eccentric calcified plaque extending from the distal right carotid bulb to the origin of the internal carotid artery with resultant 50%% stenosis. 2. Mild left carotid plaque without significant flow limiting stenosis. 3. Mild to moderate stenosis of the left vertebral artery origin secondary to calcified plaque. Leonides Alvarez MD Head CTA 05/19/17 1302 Signed Impressions: Service Date/Time: Friday, May 19, 2017 13:06 - CONCLUSION: Mild diffuse narrowing of the left proximal posterior cerebral artery is noted. Christofer Winn MD Chest X-Ray 05/19/17 0000 Signed Impressions: Service Date/Time: Friday, May 19, 2017 13:19 - CONCLUSION: 1. Minimal basilar atelectasis. No effusion or pneumothorax. Rashaad Maria MD Brain MRI 05/19/17 0000 Signed Impressions: Service Date/Time: Friday, May 19, 2017 16:57 - CONCLUSION: 1. Small subacute infarct in the posterior right frontal lobe without evidence for mass , hemorrhage. Remote lacunar infarct right chavarria radiata. Minimal white matter ischemic change. Rashaad Maria MD Objective Remarks Narrative GENERAL: Awake and alert, in no acute distress. SKIN: Warm and dry. HEAD: Atraumatic. Normocephalic. EYES: Pupils equal and round. No scleral icterus. EOMI. ENT: Mucous membranes pink and moist. NECK: Trachea midline. No JVD. CARDIOVASCULAR: Regular rate and rhythm. RESPIRATORY: No accessory muscle use. Clear to auscultation. Breath sounds equal bilaterally. GASTROINTESTINAL: Abdomen soft, non-tender, nondistended. MUSCULOSKELETAL: Extremities without clubbing, cyanosis, or edema. No obvious deformities. NEUROLOGICAL: Awake and alert. Left sided facial droop. Slurring of speech. Equal motor strength, however, left wrist is injured and weak because of this. PSYCHIATRIC: Appropriate mood and affect; insight and judgment normal. A/P Assessment and Plan 71-year-old male with: Ischemic stroke status post thrombolysis Hypertension History of psoriasis Plan: Neuro: Admitted to [facility]. Status post TPA. Follow neuro checks per stroke protocol Stroke workup in progress. CTA revealed 50% right ICA stenosis. Further recommendations per neurology. Repeat head CT in 24 hours. Awaiting MRI brain. Neurology consulted and following. Dr. Barragan scheduling patient for right CEA for Wednesday. Cardiovascular: IV hydration, labetalol when necessary to keep SBP below 180 mmHg. Pulmonary: Supplemental O2 to keep O2 sat over 94% as needed GI/liver: Advance diet per Speech therapist recs Renal/: IV hydration, follow intake output, monitor and replete electro lites , follow BUN/creatinine. ID: No indication for antibiotics at this time Heme: Follow CBC Skin: Continue methotrexate for psoriasis Endocrine: Watch for hyperglycemia, SSI for glycemic control if needed. Prophylaxis: SCDs. No heparin or Lovenox till cleared by neurology. Patient will be transferred out of ICU. Transfer to hospitalist service for further medical management. Critical care signing off at this time, please reconsult if needed. Devyn Jackson MD May 20, 2017 15:26
--- NOTE | 2017-05-20 17:31 | ECHRPT ---
Indication: CVA/TIA CONCLUSIONS Wall thickness is measured at the upper limits of normal. Normal left ventricular size. There is mild tricuspid valve regurgitation. The estimated pulmonary arterial pressure is 30.6 mmHg. BP: 175 / 82 HR: 67 Rhythm: Sinus MEASUREMENTS (Male / Female) Normal Values Technical Quality:Good 2D ECHO LV Diastolic Diameter PLAX 4.3 cm 4.2 - 5.9 / 3.9 - 5.3 cm LV Systolic Diameter PLAX 3.0 cm IVS Diastolic Thickness 1.2 cm 0.6 - 1.0 / 0.6 - 0.9 cm LVPW Diastolic Thickness 1.0 cm 0.6 - 1.0 / 0.6 - 0.9 cm LV Relative Wall Thickness 0.5 RV Internal Dim ED PLAX 3.7 cm LVOT Diameter 2.2 cm LA Systolic Diameter LX 3.9 cm 3.0 - 4.0 / 2.7 - 3.8 cm M-MODE Aortic Root Diameter MM 3.0 cm LA Systolic Diameter MM 3.3 cm LA Ao Ratio MM 1.1 AV Cusp Separation MM 2.0 cm DOPPLER AV Peak Velocity 155.0 cm/s AV Peak Gradient 9.6 mmHg LVOT Peak Velocity 127.0 cm/s LVOT Peak Gradient 6.5 mmHg AV Area Cont Eq pk 3.1 cm MV Area PHT 2.7 cm Mitral E Point Velocity 96.3 cm/s Mitral A Point Velocity 99.7 cm/s Mitral E to A Ratio 1.0 LV E' Lateral Velocity 8.9 cm/s Mitral E to LV E' Lateral Ratio 10.9 LV E' Septal Velocity 8.0 cm/s Mitral E to LV E' Septal Ratio 12.1 TR Peak Velocity 227.0 cm/s TR Peak Gradient 20.6 mmHg Right Atrial Pressure 10.0 mmHg Pulmonary Artery Systolic Pressu 30.6 mmHg Right Ventricular Systolic Press 30.6 mmHg FINDINGS LEFT VENTRICLE The left ventricular systolic function is normal with an estimated ejection fraction in the range of 60-65%. Wall thickness is measured at the upper limits of normal. Normal left ventricular size. RIGHT VENTRICLE Normal right ventricular size and systolic function. LEFT ATRIUM The left atrial size is normal. RIGHT ATRIUM The right atrial size is normal. ATRIAL SEPTUM Normal atrial septal thickness without atrial level shunting by limited color doppler interrogation. AORTA The aortic root and proximal ascending aorta are normal in size on limited imaging. MITRAL VALVE Structurally normal mitral valve. No mitral valve stenosis or regurgitation. AORTIC VALVE Trileaflet aortic valve. No aortic valve stenosis or regurgitation. TRICUSPID VALVE There is mild tricuspid valve regurgitation. The estimated pulmonary arterial pressure is 30.6 mmHg. PULMONARY VALVE No pulmonary valve regurgitation or stenosis. VESSELS The inferior vena cava is normal in size. PERICARDIUM No pericardial effusion. Jesus Magaña MD, FACC (Electronically Signed) Final Date:20 May 2017 17:30
--- NOTE | 2017-05-20 18:00 | RADRPT ---
EXAM DATE/TIME: 05/20/2017 15:52 [facility] COMPARISON: No previous studies available for comparison. INDICATIONS : Syncope. MEDICAL HISTORY : Cerebrovascular disease. Hypertension. Gastroesophageal reflux disease. Gout. Left arm numbness. Pso riasis. SURGICAL HISTORY : Orthopedic surgery. ENCOUNTER: Subsequent ACUITY: 1 day PAIN SCORE: 0/10 LOCATION: Bilateral neck PEAK SYSTOLIC VELOCITIES (cm/sec): ICA/CCA RATIO: Right: 1.1 Left: 1.0 ICA: Right: 113 Left: 108 CCA: Right: 104 Left: 110 ECA: Right: 100 Left: 102 VERTEBRAL: Right: 86 antegrade Left: 44 antegrade Elevated flow velocities and ICA/CCA ratios have been found to correlate with increased degrees of vessel stenosis, calculated as percentage of diameter relative to a normal segment of distal ICA/CCA FINDINGS: There is moderate visible plaque formation at the right carotid bifurcation protruding into the lumen . However, by velocity measurements the stenosis does not appear to be hemodynamically significant. T here is mild stenosis at the left carotid bifurcation. Both vertebral arteries flow antegrade. CONCLUSION: 1. Moderate visible plaque, calcified right carotid bifurcation but no hemodynamically significant st enosis identified based on velocity measurements. Mild visible plaque on the left without significant stenosis. Rashaad Maria MD on May 20, 2017 at 17:55 Board Certified Radiologist. This report was verified electronically.
[2017-05-20 18:30] VITALS: BP_SYST 108; BP_SYST 160; BP_DIAS 57; BP_DIAS 77; PULSE 66; PULSE 89; RESP 16; RESP 18; TEMP 98.2; TEMP 99.2; O2SAT 94; O2SAT 98
[2017-05-20 20:00] VITALS: BP 154/82; PULSE 77; RESP 18; TEMP 98; O2SAT 98
[2017-05-20] MEDS: ATORVASTATIN 80 MG TAB PO SCH (23:27)
[2017-05-21] VITALS (9 sets, daily range): BP systolic 134–172; BP diastolic 63–77; PULSE 56–82; RESP 18–20; TEMP 97–98.7; O2SAT 93–98
[2017-05-21] MEDS: INSULIN ASPART SUPPLEMENTAL SCALE SQ SCH ×4 (08:00→21:00)
[2017-05-21] MEDS: SODIUM CHLORIDE 0.9% FLUSH 10 ML FLUSH IV FLUSH SCH ×2 (09:00→20:52)
--- NOTE | 2017-05-21 09:13 | MB ---
cc: Brando Abraham MD DATE OF CONSULT: 05/20/2017 HISTORY OF PRESENT ILLNESS: The patient is a 71-year-old gentleman that presented to the hospital with weakness of the left side of the face and slurring of speech. The patient apparently had a stroke about 20 years ago with the same symptoms, but these resolved. The patient states that both arms and legs are fine and that he did not have weakness in either. Upon their arrival, the patient was worked up in standard fashion. CT scan of the head was negative. The patient was given TPA and over the last 24 hours, he has fully recovered. In the process, he was found to have right carotid artery stenosis with a bulky thick plaque. Question arose about the vascular surgery implications. PAST MEDICAL HISTORY: The stroke about 20 years ago, hypertension. PAST SURGICAL HISTORY: NONE. MEDICATIONS: Methotrexate and lisinopril. PHYSICAL EXAMINATION: GENERAL: Shows a 71-year-old gentleman. HEENT: Normocephalic. No trauma to head. Pupils equal, reactive. Extraocular muscles intact. The patient does not have any lateralization at this time. NECK: Supple. Bilateral carotid pulses and actually no bruits. CHEST: Bilateral breath sounds. HEART: Regular rhythm. No arrhythmias while I was observing the patient. ABDOMEN: Soft, active bowel sounds. No rebound, no guarding, no masses. EXTREMITIES: Appear to be within normal limits, with good proximal distal pulses. No vascular deficit. The patient has a support wrist splint on the left wrist due to the weakness of the same and an injury. NEUROLOGIC: The patient is fully intact. He is awake and alert. [place] Coma Scale is 15. He does not have lateralization of the face and droop is gone. IMPRESSION AND RECOMMENDATIONS: I reviewed laboratory, diagnostic procedures. The CT scan on this gentleman is clearly negative. MRI reveals small right-sided subacute ischemic infarct and a repeat CT scan of the head is also negative. Based on the fact that the patient already received TPA, has bulky carotid stenosis, I am planning to take the patient to the operating room for a carotid endarterectomy on Wednesday. There is no question that his stroke is due to the flushing off of this soft cheesy plaque and probably there is necrosis within the plaque itself. I thank you very much for referral. Critical care 38 minutes. MD CHANDLER Cano , 07:22 PM , 08:11 PM
--- NOTE | 2017-05-21 14:22 | HHI.PR ---
Review/Management Diagnosis/Plan: (1) Acute lacunar stroke ICD Codes: I63.9 - Cerebral infarction, unspecified Status: Acute Plan: lacunar infarct; mri brain + rt high dwi infarct rt carotid 50% stenosis suspect 2/2 chronic htn/small vessel dz vs rt carotid moderate hld recs plans for rt cea in am appreciate vascular surgery aspirin 162mg qd/statin d/w pt/spouse follow exam (2) HTN (hypertension) ICD Codes: I10 - Essential (primary) hypertension Status: Chronic Plan: keep <180/100 (3) Psoriasis ICD Codes: L40.9 - Psoriasis, unspecified Status: Chronic Plan: on mtx Subjective Subjective Comments No acute events reported No headache No chest pain No dyspnea Active Medications Current Medications Medications (Trade) Dose Ordered Sig/Amarilys Route Start Time Stop Time Status Last Admin Nicardipine HCl 25 mg/Sodium Chloride 250 ml @ 50 mls/hr TITRATE PRN IV 05/19/17 13:30 (NS Flush) 2 ml BID IV FLUSH 05/19/17 21:00 05/20/17 23:27 (NS Flush) 2 ml UNSCH PRN IV FLUSH 05/19/17 15:30 (Trandate Inj) 10 mg Q2H PRN IV PUSH 05/19/17 15:30 (NovoLOG SUPPLEMENTAL SCALE) 1 ACHS SQ 05/19/17 17:00 (D50w (Vial) Inj) 50 ml UNSCH PRN IV PUSH 05/19/17 15:30 (Glucagon Inj) 1 mg UNSCH PRN OTHER 05/19/17 15:30 (Lipitor) 80 mg HS PO 05/20/17 21:00 05/20/17 23:27 Allergies Allergies Coded Allergies No Known Allergies (Verified Allergy, Unknown, 04/02/17) Review of Systems All other ROS: ROS reviewed as documented in chart Exam I&O / VS Vital Signs Date Time Temp Pulse Resp B/P (MAP) Pulse Ox O2 Delivery O2 Flow Rate FiO2 05/21/17 12:00 82 05/21/17 12:00 98.4 70 18 134/71 (92) 96 05/21/17 08:15 56 05/21/17 08:00 97.7 66 18 157/77 (103) 98 05/21/17 04:00 97.9 69 18 143/63 (89) 97 05/21/17 00:00 97.7 67 18 137/72 (93) 98 05/20/17 20:00 98.0 77 18 154/82 (106) 98 05/20/17 18:30 98.2 66 18 160/77 (104) 98 05/20/17 15:00 68 General: Alert and Oriented, No acute distress Eye: EOMI Respiratory: Non-labored respirations Cardiology: Normal rate Neurologic: Alert, Oriented, Normal sensory, Normal motor, Normal DTR's Psychiatric: Cooperative, Appropriate mood & affect, Normal judgement Exam Comments alert, ox 3, follows, mild dysfluency, eomi, vff, able to name objects, no drift no ataxia, sensory nml, no neglect, nihss 1 Problem Qualifiers (1) HTN (hypertension): Qualified Codes: I10 - Essential (primary) hypertension Irving Castro MD May 21, 2017 14:22
--- NOTE | 2017-05-21 15:16 | PD.CAR.PN ---
CVT Progress Note Subjective/Hospital Course: Patient with stroke post TPA lysis Bulky 50% carotid stenosis of the right common and proximal internal carotid artery Depending on today's repeat scan, in all likelihood will go ahead with surgery on Wednesday Full consult dictated Thanks J 05/11/2017 Patient awake alert and oriented No neurologic deficit on gross exam The 50% stenosis of the carotid is truly bulky and burden of atherosclerotic plaque will not narrowing very tightly, is high. Therefore it is probably likely that patient has TIAs due to flushing off of the plaque but and again small vessel disease of the brain could also be additional culprit Agree with neurology and their expert assessment For right carotid endarterectomy tomorrow I explained to patient and family risks and benefits of the procedure Objective: Vital Signs Date Time Temp Pulse Resp B/P (MAP) Pulse Ox O2 Delivery O2 Flow Rate FiO2 05/21/17 12:00 82 05/21/17 12:00 98.4 70 18 134/71 (92) 96 05/21/17 08:15 56 05/21/17 08:00 97.7 66 18 157/77 (103) 98 05/21/17 04:00 97.9 69 18 143/63 (89) 97 05/21/17 00:00 97.7 67 18 137/72 (93) 98 05/20/17 20:00 98.0 77 18 154/82 (106) 98 05/20/17 18:30 98.2 66 18 160/77 (104) 98 Result Diagram: 05/19/17 1310 Brando Abraham MD May 21, 2017 15:16
[2017-05-21] MEDS: CLOPIDOGREL 75 MG TAB PO SCH (16:07)
[2017-05-21] MEDS: ASPIRIN 325 MG TAB PO SCH (16:08)
[2017-05-21] MEDS ORDERED: SODIUM CHLORID 0.9% 500 ML IV PRN (18:30)
[2017-05-21] MEDS ORDERED: METOPROLOL TARTRATE 25 MG TAB PO PRN (18:30)
[2017-05-21] MEDS ORDERED: LACTATED RINGER'S 1000 ML IV PRN (18:30)
[2017-05-21] MEDS ORDERED: CHLORHEXIDINE GLUCONATE 2 % 1 PACK (2 CLOTHS) TOPICAL PRN (18:30)
[2017-05-21] MEDS ORDERED: POVIDONE IODINE 5% (ANTISEPSIS KIT) 4 APPLICATIONS EACH NARE PRN (18:30)
[2017-05-21] MEDS: ATORVASTATIN 80 MG TAB PO SCH (20:51)
--- NOTE | 2017-05-21 23:58 | HHI.PR ---
Subjective Remarks patient seen this morning around 10 AM. Denies any chest pain, shortness of breath. Says he is feeling all right. Objective Vital Signs Date Time Temp Pulse Resp B/P (MAP) Pulse Ox O2 Delivery O2 Flow Rate FiO2 05/21/17 17:40 98 21 05/21/17 16:17 65 05/21/17 14:00 98.7 70 18 138/71 (93) 98 05/21/17 12:00 82 05/21/17 12:00 98.4 70 18 134/71 (92) 96 05/21/17 08:15 56 05/21/17 08:00 97.7 66 18 157/77 (103) 98 05/21/17 04:00 97.9 69 18 143/63 (89) 97 05/21/17 00:00 97.7 67 18 137/72 (93) 98 I/O 05/21/17 05/21/17 05/21/17 05/22/17 05/22/17 05/22/17 07:00 15:00 23:00 07:00 15:00 23:00 Intake Total 760 ml Balance 760 ml Intake Oral 760 ml # Voids 3 Result Diagram: 05/19/17 1310 Objective Remarks GENERAL: patient sitting up in bed. Appears comfortable. SKIN: Warm and dry. HEAD: Normocephalic. EYES: No scleral icterus. No injection or drainage. NECK: Supple, trachea midline. No JVD. CARDIOVASCULAR: Regular rate and rhythm without murmurs, gallops, or rubs. RESPIRATORY: Breath sounds equal bilaterally. No accessory muscle use. GASTROINTESTINAL: Abdomen soft, non-tender, nondistended. MUSCULOSKELETAL: No cyanosis, or edema. BACK: Nontender without obvious deformity. No CVA tenderness. A/P Assessment and Plan 05/21/17 Patient seen and examined. Improved weakness. Surgery planned by vascular. 71-year-old male with: //Ischemic stroke status post thrombolysis = Carotid plaque on ultrasound = Symptoms Improved status post TPA. = Plan for CEA tomorrow, Wednesday. = Neurology following. Appreciate assistance. //Hypertension //History of psoriasis -Continue methotrexate. Discharge Planning plan carotid endarterectomy on 05/22. Kirk Haq MD May 21, 2017 23:58
[2017-05-22] VITALS (7 sets, daily range): BP systolic 139–160; BP diastolic 59–75; PULSE 59–90; RESP 18–23; TEMP 97–98.2; O2SAT 97–99
[2017-05-22] MEDS: ASPIRIN 325 MG TAB PO SCH (09:00)
[2017-05-22] MEDS: CLOPIDOGREL 75 MG TAB PO SCH (09:00)
[2017-05-22] MEDS: SODIUM CHLORIDE 0.9% FLUSH 10 ML FLUSH IV FLUSH SCH ×2 (09:00→20:04)
[2017-05-22] MEDS ORDERED: HEPARIN SODIUM - SQ 10,000 UNITS/ML VIAL ONE (09:56)
[2017-05-22] MEDS ORDERED: HEPARIN SODIUM - IV 10,000 UNITS/10 ML VIAL ONE (09:57)
[2017-05-22] MEDS ORDERED: PROTAMINE SULFATE 50 MG/5 ML VIAL ONE (09:57)
[2017-05-22] MEDS ORDERED: LIDOCAINE HCL 1% PF 5 ML AMPULE ONE (10:07)
[2017-05-22] MEDS ORDERED: LIDOCAINE HCL 1% 50 ML VIAL ONE (10:08)
[2017-05-22] MEDS ORDERED: ceFAZolin INJ 1,000 MG VIAL ONE (10:50)
[2017-05-22] MEDS ORDERED: ACETAMINOPHEN 1000 MG/100 ML 100 ML IV ONE (11:20)
[2017-05-22] MEDS ORDERED: ROCURONIUM INJ 50 MG/5 ML SYRINGE IV PUSH ONE (12:00)
[2017-05-22] MEDS ORDERED: STERILE WATER FOR INJECTION 20 ML VIAL IV ONE (12:00)
[2017-05-22] MEDS ORDERED: LACTATED RINGER'S 1000 ML INJ 1,000 ML IV ONE (12:00)
[2017-05-22] MEDS ORDERED: ONDANSETRON HCL 4 MG/2 ML VIAL IV ONE (12:00)
[2017-05-22] MEDS ORDERED: VECURONIUM BROMIDE 20 MG VIAL IV ONE (12:00)
[2017-05-22] MEDS ORDERED: ePHEDrine/NS 25 MG/5 ML SYRINGE IV ONE (12:00)
[2017-05-22] MEDS ORDERED: NORMOSOL R INJ 3,000 ML IV ONE (12:00)
[2017-05-22] MEDS ORDERED: ESMOLOL HCL 100 MG/10 ML VIAL IV ONE (12:00)
[2017-05-22] MEDS ORDERED: PHENYLEPHRINE HCL 10 MG/ML VIAL IV ONE (12:00)
[2017-05-22] MEDS ORDERED: DEXAMETHASONE SOD PHOS 4 MG/ML VIAL IV ONE (12:00)
[2017-05-22] MEDS ORDERED: PROPOFOL 200 MG/20 ML AMP IV ONE (12:00)
[2017-05-22] MEDS ORDERED: NEOSTIGMINE 5 MG/5 ML SYRINGE IV PUSH ONE (12:00)
[2017-05-22] MEDS ORDERED: LIDOCAINE HCL 1% PF 5 ML SYRINGE OTHER ONE (12:00)
[2017-05-22] MEDS ORDERED: GLYCOPYRROLATE 1 MG/5 ML SYRINGE IV PUSH ONE (12:00)
[2017-05-22] MEDS ORDERED: PHENYLEPH/NS 1000 MCG/10 ML SYR IV ONE (12:00)
[2017-05-22] MEDS ORDERED: NITROGLYCERIN INJ 5 ML ONE (12:17)
[2017-05-22] MEDS ORDERED: DO NOT ADM ANY ANTICOAGULANT DRUGS PRN (14:00)
[2017-05-22] MEDS: niCARdipine INJ 25 MG in SODIUM CHLOR 0.9% 250 ML INJ 240 ML IV PRN ×3 (14:15→22:47)
[2017-05-22] MEDS ORDERED: ONDANSETRON HCL 4 MG/2 ML VIAL IV PUSH PRN (14:30)
[2017-05-22] MEDS ORDERED: oxyCODONE/ACETAMINOPHEN 5 MG/325 MG TAB PO PRN (14:30)
[2017-05-22] MEDS ORDERED: Post-op Orders (for Pharmacy) XX ONE (14:30)
[2017-05-22] MEDS ORDERED: SODIUM CHLORIDE 0.9% FLUSH 10 ML FLUSH IV FLUSH PRN (14:30)
[2017-05-22] MEDS ORDERED: NALOXONE HCL 0.4 MG/ML AMP IV PUSH PRN (14:30)
[2017-05-22] MEDS: SODIUM CHLOR 0.9% 1000 ML INJ 1,000 ML IV SCH (14:54)
[2017-05-22] MEDS: PANTOPRAZOLE SOD 40 MG DELAYED RELEASE TAB PO SCH (15:00)
--- NOTE | 2017-05-22 17:21 | HHI.PR ---
Subjective Remarks patient seen this afternoon following right-sided carotid endarterectomy. Patient denies any chest pain or shortness of breath. Objective Vital Signs Date Time Temp Pulse Resp B/P (MAP) Pulse Ox O2 Delivery O2 Flow Rate FiO2 05/22/17 16:00 97.0 80 18 139/59 (85) 99 05/22/17 14:15 88 177/76 05/22/17 14:05 97.9 109 20 160/78 (105) 99 Nasal Cannula 3 169/69 (102) 05/22/17 08:00 97.4 72 18 146/74 (98) 97 05/22/17 08:00 71 05/22/17 04:00 98.2 59 20 142/67 (92) 98 05/22/17 00:00 98.0 75 18 146/75 (98) 98 05/21/17 20:00 97.0 67 20 172/77 (108) 93 05/21/17 17:40 98 21 I/O 05/21/17 05/21/17 05/21/17 05/22/17 05/22/17 05/22/17 07:00 15:00 23:00 07:00 15:00 23:00 Intake Total 760 ml 2000 ml Output Total 350 ml Balance 760 ml 1650 ml Intake Oral 760 ml IV Total 2000 ml Output Urine Total 200 ml Estimated Blood Loss 150 ml # Voids 3 3 Result Diagram: 05/19/17 1310 Objective Remarks GENERAL: patient sitting up in bed. Appears comfortable.alert and oriented 3. SKIN: Warm and dry. HEAD: Normocephalic. EYES: No scleral icterus. No injection or drainage. NECK: Supple, trachea midline. No JVD. CARDIOVASCULAR: Regular rate and rhythm without murmurs, gallops, or rubs. RESPIRATORY: Breath sounds equal bilaterally. No accessory muscle use. GASTROINTESTINAL: Abdomen soft, non-tender, nondistended. MUSCULOSKELETAL: No cyanosis, or edema. BACK: Nontender without obvious deformity. No CVA tenderness. A/P Assessment and Plan 05/22/17 Patient seen and examined postoperatively. blood pressure management as per vascular surgery.Will add amlodipine. 71-year-old male with: //Ischemic stroke status post thrombolysis = Carotid plaque on ultrasound = Symptoms Improved status post TPA. = Plan for CEA tomorrow, Wednesday. = Neurology following. Appreciate assistance. //Hypertension =add amlodipine for blood pressure. On nicardipine drip for blood pressure //History of psoriasis -Continue methotrexate. Discharge Planning s/p carotid endarterectomy on 05/22. pt ff Kirk Haq MD May 22, 2017 17:21
[2017-05-22] MEDS ORDERED: amLODIPine BESYLATE 5 MG TAB PO ONE (17:30)
[2017-05-22] MEDS: MORPHINE SULFATE 4 MG/ML INJ IV PUSH PRN ×3 (17:46→22:46)
[2017-05-22] MEDS: ATORVASTATIN 80 MG TAB PO SCH (20:04)
--- NOTE | 2017-05-22 21:09 | MP ---
cc: Brando Abraham MD DATE OF OPERATION: 05/22/2017 PREOPERATIVE DIAGNOSES: Right internal carotid artery stenosis, recurrent stroke, hypertension. POSTOPERATIVE DIAGNOSES: Right internal carotid artery stenosis, recurrent stroke, hypertension. OPERATIVE PROCEDURE: Right carotid endarterectomy, patch angioplasty. SURGEON: Brando Abraham MD ANESTHESIA: General. ESTIMATED BLOOD LOSS: 100 mL DESCRIPTION OF PROCEDURE: The patient was prepped and draped in the usual fashion. The right pre-sternocleidomastoid incision made, deepened down through the platysma to the level of the neurovascular sheath. The common carotid, internal and external carotid arteries are isolated and vessel loops using umbilical tape and ____ retractors were placed around each respectively. The patient was given 7000 units of heparin. Hypoglossal nerve was carefully identified and preserved. A Weitlaner and upper arm retractors are placed and now clamped applied, bulldog to internal carotid artery and the DeBakey angled clamp to common carotid artery. Vessels opened longitudinally with Dutton scissors. An [place] shunt is immediately repositioned and then the ____ cinched down. Blood flow is hereby established in less than 30 seconds. Area observed. Patient has a large plaque which starts in the common carotid artery, enters into the internal carotid artery. It is fairly bulky and projects quite into the lumen of the vessel. The narrowing is probably more than 60% to 70% now that I am here. It did not look that bad on the CAT scan. In the medial plane with Duncan dissector, the entire plaque is dissected very carefully from the common carotid artery, external carotid and into the internal carotid artery. The whole specimen is removed. The plaque peels off nicely distally, i.e., in the internal carotid artery and so does in the common carotid artery. With Dutton scissors the vessel is cut in the intima and media plane to get a clean cut the would not flush off into the bloodstream later. The internal carotid artery is now observed. There are still a few pieces of debris, which are removed and then all the other debris is removed with heparinized saline and Weck-Cels. After observing the intima in the internal carotid artery, I decided to put a 7-0 Prolene horizontal mattress stitch to take down the intima posteriorly which is done immediately. Then the bovine patch was chosen 8 mm x 6 cm and this one is sewn in with running 6-0 Prolene. Prior to completing the repair, the [place] shunt is removed and the repair is completed. Blood flow was reestablished in the usual order and fashion and the patient is given 20 units of protamine at the very end of the procedure. Small bleeders are repaired with some additional 6-0 Prolene. The flow was checked with Doppler and is excellent and brisk in all 3 vessels. The area irrigated with saline. Some Surgicel placed over the vessel and then a 7 flat DOMINIC placed in the area. Incision closed with 0 Vicryl in layers and 4-0 Monocryl. The patient tolerated the procedure well. At the end of the procedure, the patient is awake, alert and oriented, neurologically fully intact. At this point, he was taken to the recovery room. MD SAUD Cano/rt , 08:20 PM , 09:07 PM
[2017-05-23] VITALS (13 sets, daily range): BP systolic 128–148; BP diastolic 56–70; PULSE 58–100; RESP 12–38; TEMP 96.9–98.4; O2SAT 91–97
[2017-05-23] MEDS: niCARdipine INJ 25 MG in SODIUM CHLOR 0.9% 250 ML INJ 240 ML IV PRN ×3 (02:33→09:44)
[2017-05-23 04:08] LABS: AUTOMATED NEUTROPHIL # 11.7 TH/MM3 (1.8-7.7); HEMATOCRIT 38.3 % (39.0-51.0); HEMOGLOBIN 13.3 GM/DL (13.0-17.0); LYMPH % 2.9 % (9.0-44.0); LYMPHOCYTE # 0.4 TH/MM3 (1.0-4.8); MEAN CELL VOLUME 91.9 FL (80.0-100.0); MEAN CORPUSCULAR HEMOGLOBIN 31.9 PG (27.0-34.0); MEAN CORPUSCULAR HGB CONC 34.7 % (32.0-36.0); MONO % 1.2 % (0.0-8.0); MONOCYTE # 0.1 TH/MM3 (0-0.9); NEUT % 95.9 % (16.0-70.0); PLATELET COUNT 188 TH/MM3 (150-450); RED BLOOD COUNT 4.16 MIL/MM3 (4.50-5.90); RED CELL DISTRIBUTION WIDTH 16.4 % (11.6-17.2); WHITE BLOOD COUNT 12.2 TH/MM3 (4.0-11.0)
[2017-05-23 04:24] LABS: ALBUMIN 3.3 GM/DL (3.4-5.0); CREATININE 0.9 MG/DL (0.60-1.30)
[2017-05-23 04:25] LABS: PHOSPHORUS 2.8 MG/DL (2.5-4.9)
[2017-05-23] MEDS: MORPHINE SULFATE 4 MG/ML INJ IV PUSH PRN (05:45)
[2017-05-23] MEDS: SODIUM CHLOR 0.9% 1000 ML INJ 1,000 ML IV SCH (07:21)
[2017-05-23] MEDS ORDERED: amLODIPine BESYLATE 5 MG TAB PO SCH (09:00)
[2017-05-23] MEDS: SODIUM CHLORIDE 0.9% FLUSH 10 ML FLUSH IV FLUSH SCH ×2 (09:00→21:31)
[2017-05-23] MEDS: CLOPIDOGREL 75 MG TAB PO SCH (09:20)
[2017-05-23] MEDS: ASPIRIN 325 MG TAB PO SCH (09:21)
--- NOTE | 2017-05-23 11:16 | HHI.PR ---
Review/Management Diagnosis/Plan: (1) Acute lacunar stroke ICD Codes: I63.9 - Cerebral infarction, unspecified Status: Acute Plan: lacunar infarct; mri brain + rt high dwi infarct rt carotid 50% stenosis suspect 2/2 chronic htn/small vessel dz vs rt carotid moderate hld recs neuro stable. doing well plan for d/c in am bp in limits appreciate vascular surgery aspirin 162mg qd/statin d/w pt/spouse follow exam (2) HTN (hypertension) ICD Codes: I10 - Essential (primary) hypertension Status: Chronic Plan: keep <180/100 (3) Psoriasis ICD Codes: L40.9 - Psoriasis, unspecified Status: Chronic Plan: on mtx Subjective Subjective Comments No acute events reported No headache No chest pain No dyspnea Active Medications Current Medications Medications (Trade) Dose Ordered Sig/Amarilys Route Start Time Stop Time Status Last Admin (NS Flush) 2 ml BID IV FLUSH 05/19/17 21:00 05/22/17 20:04 (Trandate Inj) 10 mg Q2H PRN IV PUSH 05/19/17 15:30 (D50w (Vial) Inj) 50 ml UNSCH PRN IV PUSH 05/19/17 15:30 (Glucagon Inj) 1 mg UNSCH PRN OTHER 05/19/17 15:30 (Lipitor) 80 mg HS PO 05/20/17 21:00 05/22/17 20:04 (Aspirin) 162 mg DAILY PO 05/21/17 16:00 05/23/17 09:21 (Plavix) 75 mg DAILY PO 05/21/17 16:00 05/23/17 09:20 Cefazolin Sodium 1000 mg/Sodium Chloride 100 ml @ 200 mls/hr [employer]ER IV 05/21/17 15:30 05/24/17 15:29 Miscellaneous Information ALL NURSING DEPARTME... UNSCH PRN .XX 05/22/17 14:00 05/23/17 13:59 Sodium Chloride 1,000 ml @ 60 mls/hr [id number] IV 05/22/17 15:00 05/23/17 07:21 (NS Flush) 2 ml UNSCH PRN IV FLUSH 05/22/17 14:30 (Zofran Inj) 4 mg Q6H PRN IV PUSH 05/22/17 14:30 (Protonix) 40 mg Q24H PO 05/22/17 15:00 05/22/17 15:00 (Percocet 5-325 Mg) 1 tab Q4H PRN PO 05/22/17 14:30 (Morphine Inj) 4 mg Q2H PRN IV PUSH 05/22/17 14:45 05/23/17 05:45 (Narcan Inj) 0.4 mg UNSCH PRN IV PUSH 05/22/17 14:30 Nicardipine HCl 25 mg/Sodium Chloride 250 ml @ 50 mls/hr TITRATE PRN IV 05/22/17 14:30 05/23/17 09:44 (Norvasc) 5 mg DAILY PO 05/23/17 09:00 05/23/17 09:21 Allergies Allergies Coded Allergies No Known Allergies (Verified Allergy, Unknown, 04/02/17) Review of Systems All other ROS: ROS reviewed as documented in chart Exam I&O / VS 05/23/17 05/23/17 05/24/17 15:00 23:00 07:00 Intake Total 1000 ml Balance 1000 ml IV Total 1000 ml Vital Signs Date Time Temp Pulse Resp B/P (MAP) Pulse Ox O2 Delivery O2 Flow Rate FiO2 05/23/17 10:00 80 05/23/17 09:44 94 155/65 05/23/17 08:49 96 21 05/23/17 08:00 70 05/23/17 08:00 97.6 70 12 128/56 (80) 93 05/23/17 06:04 69 133/56 05/23/17 06:00 73 05/23/17 04:00 98 05/23/17 04:00 98.0 98 38 138/66 (90) 92 05/23/17 02:33 72 136/63 05/23/17 02:00 72 05/23/17 00:00 98.2 70 12 130/56 (80) 95 05/23/17 00:00 70 05/22/17 22:47 78 136/58 05/22/17 22:00 80 05/22/17 20:00 90 05/22/17 20:00 97.9 90 23 160/70 (100) 98 05/22/17 19:08 87 157/67 05/22/17 18:00 77 05/22/17 16:00 97.0 80 18 139/59 (85) 99 05/22/17 15:30 98.0 82 20 146/79 (101) 100 Nasal Cannula 3 145/57 (86) 05/22/17 15:15 80 20 138/69 (92) 100 Nasal Cannula 3 149/59 (89) 05/22/17 15:00 82 20 139/69 (92) 100 Nasal Cannula 3 148/59 (88) 05/22/17 14:45 81 20 137/70 (92) 100 Nasal Cannula 3 148/59 (88) 05/22/17 14:30 84 20 140/75 (96) 100 Nasal Cannula 3 154/63 (93) 05/22/17 14:15 100 20 140/75 (96) 100 Nasal Cannula 3 177/76 (109) 05/22/17 14:15 88 177/76 05/22/17 14:05 97.9 109 20 160/78 (105) 99 Nasal Cannula 3 169/69 (102) General: Alert and Oriented, No acute distress Eye: EOMI Respiratory: Non-labored respirations Cardiology: Normal rate Neurologic: Alert, Oriented, Normal sensory, Normal motor, Normal DTR's Psychiatric: Cooperative, Appropriate mood & affect, Normal judgement Exam Comments alert, ox 3, follows,fluent, eomi, vff, minimal tongue deviation to rt, able to name objects, no drift no ataxia, sensory nml, no neglect, nihss 0 Objective Micro and Labs Laboratory Tests Test 05/23/17 03:55 White Blood Count 12.2 Red Blood Count 4.16 Hemoglobin 13.3 Hematocrit 38.3 Mean Corpuscular Volume 91.9 Mean Corpuscular Hemoglobin 31.9 Mean Corpuscular Hemoglobin Concent 34.7 Red Cell Distribution Width 16.4 Platelet Count 188 Mean Platelet Volume 8.0 Neutrophils (%) (Auto) 95.9 Lymphocytes (%) (Auto) 2.9 Monocytes (%) (Auto) 1.2 Eosinophils (%) (Auto) 0.0 Basophils (%) (Auto) 0.0 Neutrophils # (Auto) 11.7 Lymphocytes # (Auto) 0.4 Monocytes # (Auto) 0.1 Eosinophils # (Auto) 0.0 Basophils # (Auto) 0.0 CBC Comment DIFF FINAL Differential Comment Blood Urea Nitrogen 11 Creatinine 0.90 Random Glucose 137 Albumin 3.3 Calcium Level 8.0 Phosphorus Level 2.8 Magnesium Level 2.0 Sodium Level 135 Potassium Level 4.2 Chloride Level 103 Carbon Dioxide Level 23.0 Anion Gap 9 Estimat Glomerular Filtration Rate 83 Problem Qualifiers (1) HTN (hypertension): Qualified Codes: I10 - Essential (primary) hypertension Irving Castro MD May 23, 2017 11:16
[2017-05-23] MEDS ORDERED: METOPROLOL TARTRATE 50 MG TAB PO SCH (14:00)
[2017-05-23] MEDS ORDERED: cloNIDine HCL 0.2 MG/24 HR PATCH T-DERMAL ONE (14:00)
[2017-05-23] MEDS: PANTOPRAZOLE SOD 40 MG DELAYED RELEASE TAB PO SCH (15:00)
--- NOTE | 2017-05-23 19:13 | PD.CAR.PN ---
CVT Progress Note Subjective/Hospital Course: Patient with stroke post TPA lysis Bulky 50% carotid stenosis of the right common and proximal internal carotid artery Depending on today's repeat scan, in all likelihood will go ahead with surgery on Wednesday Full consult dictated Thanks Barney 05/21/2017 Patient awake alert and oriented No neurologic deficit on gross exam The 50% stenosis of the carotid is truly bulky and burden of atherosclerotic plaque will not narrowing very tightly, is high. Therefore it is probably likely that patient has TIAs due to flushing off of the plaque but and again small vessel disease of the brain could also be additional culprit Agree with neurology and their expert assessment For right carotid endarterectomy tomorrow I explained to patient and family risks and benefits of the procedure 05/23/2017 Status post right carotid endarterectomy patch angioplasty Neurologically patient fully intact Incision clean dry Remove DOMINIC Out of bed Will add some antihypertensives and remove nicardipine as the pressure is controlled at this time Transfer to floor Patient can be discharged from my point tomorrow all things equal Will follow-up in my office in 2-3 weeks Objective: Vital Signs Date Time Temp Pulse Resp B/P (MAP) Pulse Ox O2 Delivery O2 Flow Rate FiO2 05/23/17 14:00 100 05/23/17 12:00 98.2 86 18 143/70 (94) 96 Arterial Line 05/23/17 12:00 86 05/23/17 10:00 80 05/23/17 09:44 94 155/65 05/23/17 08:49 96 21 05/23/17 08:00 70 05/23/17 08:00 97.6 70 12 128/56 (80) 93 05/23/17 06:04 69 133/56 05/23/17 06:00 73 05/23/17 04:00 98 05/23/17 04:00 98.0 98 38 138/66 (90) 92 05/23/17 02:33 72 136/63 05/23/17 02:00 72 05/23/17 00:00 98.2 70 12 130/56 (80) 95 05/23/17 00:00 70 05/22/17 22:47 78 136/58 05/22/17 22:00 80 05/22/17 20:00 90 05/22/17 20:00 97.9 90 23 160/70 (100) 98 Result Diagram: 05/23/17 0355 05/23/17 0355 Brando Abraham MD May 23, 2017 19:13
[2017-05-23] MEDS: ATORVASTATIN 80 MG TAB PO SCH (21:31)
[2017-05-23] MEDS: METOPROLOL TARTRATE 50 MG TAB PO SCH (21:31)
--- NOTE | 2017-05-23 23:22 | HHI.PR ---
Subjective Remarks Patient says he is feeling well. Denies any chest pain or shortness of breath. Denies any nausea or vomiting. Objective Vital Signs Date Time Temp Pulse Resp B/P (MAP) Pulse Ox O2 Delivery O2 Flow Rate FiO2 05/23/17 20:50 96.9 67 17 148/63 (91) 97 05/23/17 20:00 61 05/23/17 20:00 98.4 61 18 131/63 (85) 97 05/23/17 18:00 58 05/23/17 16:00 98.1 82 16 141/66 (91) 91 05/23/17 16:00 82 05/23/17 14:00 100 05/23/17 12:00 98.2 86 18 143/70 (94) 96 Arterial Line 05/23/17 12:00 86 05/23/17 10:00 80 05/23/17 09:44 94 155/65 05/23/17 08:49 96 21 05/23/17 08:00 70 05/23/17 08:00 97.6 70 12 128/56 (80) 93 05/23/17 06:04 69 133/56 05/23/17 06:00 73 05/23/17 04:00 98 05/23/17 04:00 98.0 98 38 138/66 (90) 92 05/23/17 02:33 72 136/63 05/23/17 02:00 72 05/23/17 00:00 98.2 70 12 130/56 (80) 95 05/23/17 00:00 70 I/O 05/23/17 05/23/17 05/23/17 05/24/17 05/24/17 05/24/17 07:00 15:00 23:00 07:00 15:00 23:00 Intake Total 980 ml 1270 ml 2040 ml Output Total 1625 ml 10 ml 850 ml Balance -645 ml 1260 ml 1190 ml Intake Oral 480 ml 2040 ml IV Total 500 ml 1270 ml Output Urine Total 1600 ml 850 ml Drainage Total 25 ml 10 ml # Voids 3 # Bowel Movements 0 0 Result Diagram: 05/23/17 0355 05/23/17 0355 Objective Remarks GENERAL: patient sitting up in bed. Appears comfortable.alert and oriented 4. SKIN: Warm and dry. HEAD: Normocephalic. EYES: No scleral icterus. No injection or drainage. NECK: Supple, trachea midline. No JVD. CARDIOVASCULAR: Regular rate and rhythm without murmurs, gallops, or rubs. RESPIRATORY: Breath sounds equal bilaterally. No accessory muscle use. GASTROINTESTINAL: Abdomen soft, non-tender, nondistended. MUSCULOSKELETAL: No cyanosis, or edema. BACK: Nontender without obvious deformity. No CVA tenderness. A/P Assessment and Plan 05/23/17 Patient off nicardipine drip on clonidine patch. We'll increase amlodipine. Doing well. Laxatives ordered for constipation. 71-year-old male with: //Ischemic stroke status post thrombolysis = Carotid plaque on ultrasound = Symptoms Improved status post TPA. = Plan for CEA tomorrow, Wednesday. = Neurology following. Appreciate assistance. //Hypertension =add amlodipine for blood pressure. On nicardipine drip for blood pressure //History of psoriasis -Continue methotrexate. Discharge Planning s/p carotid endarterectomy on 05/22. pt ff we'll need vascular surgery clearance. Kirk Haq MD May 23, 2017 23:22
[2017-05-23] MEDS ORDERED: MAGNESIUM HYDROXIDE SUSP 30 ML CUP PO ONE (23:30)
[2017-05-23] MEDS ORDERED: DOCUSATE SODIUM 50 MG/SENNA 8.6 MG TAB PO ONE (23:30)
[2017-05-24] VITALS: BP 110/71; PULSE 60; RESP 16; TEMP 97.3; O2SAT 97
[2017-05-24 04:00] VITALS: BP 138/68; PULSE 73; RESP 17; TEMP 96.7; O2SAT 98
[2017-05-24 06:28] VITALS: O2SAT 98
[2017-05-24 07:38] VITALS: BP 123/65; PULSE 57; RESP 19; TEMP 98.1; O2SAT 97
[2017-05-24] MEDS: METOPROLOL TARTRATE 50 MG TAB PO SCH (07:52)
[2017-05-24] MEDS: CLOPIDOGREL 75 MG TAB PO SCH (07:53)
[2017-05-24] MEDS: SODIUM CHLORIDE 0.9% FLUSH 10 ML FLUSH IV FLUSH SCH (07:53)
[2017-05-24] MEDS: ASPIRIN 325 MG TAB PO SCH (07:53)
[2017-05-24 07:57] LABS: AUTOMATED NEUTROPHIL # 10.9 TH/MM3 (1.8-7.7); BASOPHIL % 0.2 % (0.0-2.0); EOSINOPHIL % 0.1 % (0.0-4.0); HEMATOCRIT 36.8 % (39.0-51.0); HEMOGLOBIN 12.4 GM/DL (13.0-17.0); LYMPH % 7.6 % (9.0-44.0); LYMPHOCYTE # 0.9 TH/MM3 (1.0-4.8); MEAN CELL VOLUME 92.8 FL (80.0-100.0); MEAN CORPUSCULAR HEMOGLOBIN 31.3 PG (27.0-34.0); MEAN CORPUSCULAR HGB CONC 33.8 % (32.0-36.0); MEAN PLATELET VOLUME 8.1 FL (7.0-11.0); MONO % 3.8 % (0.0-8.0); MONOCYTE # 0.5 TH/MM3 (0-0.9); NEUT % 88.3 % (16.0-70.0); PLATELET COUNT 218 TH/MM3 (150-450); RED BLOOD COUNT 3.97 MIL/MM3 (4.50-5.90); RED CELL DISTRIBUTION WIDTH 16.7 % (11.6-17.2); WHITE BLOOD COUNT 12.3 TH/MM3 (4.0-11.0)
[2017-05-24 08:30] LABS: ALBUMIN 3.3 GM/DL (3.4-5.0); BICARBONATE 26.7 MEQ/L (21.0-32.0); CALCIUM 8.8 MG/DL (8.5-10.1); CREATININE 1.01 MG/DL (0.60-1.30); MAGNESIUM 2.4 MG/DL (1.5-2.5); PHOSPHORUS 2.2 MG/DL (2.5-4.9)
[2017-05-24 09:00] VITALS: O2SAT 98
[2017-05-24] MEDS ORDERED: amLODIPine BESYLATE 5 MG TAB PO SCH (09:00)
--- NOTE | 2017-05-24 09:10 | HHI.PR ---
Review/Management Diagnosis/Plan: (1) Acute lacunar stroke ICD Codes: I63.9 - Cerebral infarction, unspecified Status: Acute Plan: lacunar infarct; mri brain + rt high dwi infarct rt carotid 50% stenosis suspect 2/2 chronic htn/small vessel dz vs rt carotid moderate hld recs neuro stable. doing well plan for d/c today from neuro. f/u with us in 3-2 weeks bp in good range aspirin 162mg qd/statin (2) HTN (hypertension) ICD Codes: I10 - Essential (primary) hypertension Status: Chronic Plan: keep <180/100 (3) Psoriasis ICD Codes: L40.9 - Psoriasis, unspecified Status: Chronic Plan: on mtx Subjective Subjective Comments No acute events reported No headache No chest pain No dyspnea Active Medications Current Medications Medications (Trade) Dose Ordered Sig/Amarilys Route Start Time Stop Time Status Last Admin (NS Flush) 2 ml BID IV FLUSH 05/19/17 21:00 05/24/17 07:53 (D50w (Vial) Inj) 50 ml UNSCH PRN IV PUSH 05/19/17 15:30 (Glucagon Inj) 1 mg UNSCH PRN OTHER 05/19/17 15:30 (Lipitor) 80 mg HS PO 05/20/17 21:00 05/23/17 21:31 (Aspirin) 162 mg DAILY PO 05/21/17 16:00 05/24/17 07:53 (Plavix) 75 mg DAILY PO 05/21/17 16:00 05/24/17 07:53 Cefazolin Sodium 1000 mg/Sodium Chloride 100 ml @ 200 mls/hr B[employer] WORKER IV 05/21/17 15:30 05/24/17 15:29 (NS Flush) 2 ml UNSCH PRN IV FLUSH 05/22/17 14:30 (Zofran Inj) 4 mg Q6H PRN IV PUSH 05/22/17 14:30 (Protonix) 40 mg Q24H PO 05/22/17 15:00 05/23/17 15:00 (Percocet 5-325 Mg) 1 tab Q4H PRN PO 05/22/17 14:30 (Morphine Inj) 4 mg Q2H PRN IV PUSH 05/22/17 14:45 05/23/17 05:45 (Narcan Inj) 0.4 mg UNSCH PRN IV PUSH 05/22/17 14:30 Nicardipine HCl 25 mg/Sodium Chloride 250 ml @ 50 mls/hr TITRATE PRN IV 05/22/17 14:30 05/23/17 09:44 (Lopressor) 25 mg Q12HR PO 05/23/17 21:00 05/24/17 07:52 (Norvasc) 10 mg DAILY PO 05/24/17 09:00 05/24/17 07:53 Allergies Allergies Coded Allergies No Known Allergies (Verified Allergy, Unknown, 04/02/17) Review of Systems All other ROS: ROS reviewed as documented in chart Exam I&O / VS Vital Signs Date Time Temp Pulse Resp B/P (MAP) Pulse Ox O2 Delivery O2 Flow Rate FiO2 05/24/17 07:38 98.1 57 19 123/65 (84) 97 05/24/17 06:28 98 Nasal Cannula 2.00 05/24/17 04:00 96.7 73 17 138/68 (91) 98 05/24/17 00:00 97.3 60 16 110/71 (84) 97 05/23/17 20:50 96.9 67 17 148/63 (91) 97 05/23/17 20:00 61 05/23/17 20:00 98.4 61 18 131/63 (85) 97 05/23/17 18:00 58 05/23/17 16:00 98.1 82 16 141/66 (91) 91 05/23/17 16:00 82 05/23/17 14:00 100 05/23/17 12:00 98.2 86 18 143/70 (94) 96 Arterial Line 05/23/17 12:00 86 05/23/17 10:00 80 05/23/17 09:44 94 155/65 General: Alert and Oriented, No acute distress Eye: EOMI Respiratory: Non-labored respirations Cardiology: Normal rate Neurologic: Alert, Oriented, Normal sensory, Normal motor, Normal DTR's Psychiatric: Cooperative, Appropriate mood & affect, Normal judgement Exam Comments alert, ox 3, follows,sitting up looks well, rt cea incision looks well, fluent, eomi, vff, tongue midline, able to name objects, no drift no ataxia, sensory nml , no neglect, nihss 0 Objective Micro and Labs Laboratory Tests Test 05/24/17 06:05 White Blood Count 12.3 Red Blood Count 3.97 Hemoglobin 12.4 Hematocrit 36.8 Mean Corpuscular Volume 92.8 Mean Corpuscular Hemoglobin 31.3 Mean Corpuscular Hemoglobin Concent 33.8 Red Cell Distribution Width 16.7 Platelet Count 218 Mean Platelet Volume 8.1 Neutrophils (%) (Auto) 88.3 Lymphocytes (%) (Auto) 7.6 Monocytes (%) (Auto) 3.8 Eosinophils (%) (Auto) 0.1 Basophils (%) (Auto) 0.2 Neutrophils # (Auto) 10.9 Lymphocytes # (Auto) 0.9 Monocytes # (Auto) 0.5 Eosinophils # (Auto) 0.0 Basophils # (Auto) 0.0 CBC Comment DIFF FINAL Differential Comment Blood Urea Nitrogen 18 Creatinine 1.01 Random Glucose 84 Albumin 3.3 Calcium Level 8.8 Phosphorus Level 2.2 Magnesium Level 2.4 Sodium Level 140 Potassium Level 3.9 Chloride Level 106 Carbon Dioxide Level 26.7 Anion Gap 7 Estimat Glomerular Filtration Rate 73 Problem Qualifiers (1) HTN (hypertension): Qualified Codes: I10 - Essential (primary) hypertension Irving Castro MD May 24, 2017 09:10
[2017-05-24] MEDS ORDERED: METO-309 PO (09:31)
[2017-05-24] MEDS ORDERED: ASA325 PO (09:31)
[2017-05-24] MEDS ORDERED: AMLO5 PO (09:31)
[2017-05-24] MEDS ORDERED: PLAV75TA29 PO (09:31)
[2017-05-24] MEDS ORDERED: LISI2.5T3 PO (09:31)
[2017-05-24] MEDS ORDERED: CLON0.1D T-DERMAL (09:31)
[2017-05-24] MEDS ORDERED: LISI-519 PO (10:03)
[2017-05-24] MEDS ORDERED: ATOR80TA45 PO (10:04)
[2017-05-24] MEDS ORDERED: cloNIDine HCL 0.1 MG/24 HR PATCH T-DERMAL ONE (10:15)
--- NOTE | 2017-05-24 16:26 | HHI.PR ---
Subjective Remarks pt is seen this morning. Says he feels great. Denies any chest pain or shortness of breath. Denies any focal signs or symptoms. Feels like going home. Objective Vital Signs Date Time Temp Pulse Resp B/P (MAP) Pulse Ox O2 Delivery O2 Flow Rate FiO2 05/24/17 09:00 98 21 05/24/17 07:38 98.1 57 19 123/65 (84) 97 05/24/17 06:28 98 Nasal Cannula 2.00 05/24/17 04:00 96.7 73 17 138/68 (91) 98 05/24/17 00:00 97.3 60 16 110/71 (84) 97 05/23/17 20:50 96.9 67 17 148/63 (91) 97 05/23/17 20:00 61 05/23/17 20:00 98.4 61 18 131/63 (85) 97 05/23/17 18:00 58 I/O 05/23/17 05/23/17 05/23/17 05/24/17 05/24/17 05/24/17 07:00 15:00 23:00 07:00 15:00 23:00 Intake Total 980 ml 1270 ml 2040 ml 240 ml Output Total 1625 ml 10 ml 850 ml Balance -645 ml 1260 ml 1190 ml 240 ml Intake Oral 480 ml 2040 ml 240 ml IV Total 500 ml 1270 ml Output Urine Total 1600 ml 850 ml Drainage Total 25 ml 10 ml # Voids 3 1 # Bowel Movements 0 0 Result Diagram: 05/24/17 0605/24/17 06 Objective Remarks GENERAL: patient sitting up on edge of bed. Appears comfortable.alert and oriented 4. SKIN: Warm and dry. HEAD: Normocephalic. EYES: No scleral icterus. No injection or drainage. NECK: Supple, trachea midline. No JVD. CARDIOVASCULAR: Regular rate and rhythm without murmurs, gallops, or rubs. RESPIRATORY: Breath sounds equal bilaterally. No accessory muscle use. GASTROINTESTINAL: Abdomen soft, non-tender, nondistended. MUSCULOSKELETAL: No cyanosis, or edema. BACK: Nontender without obvious deformity. No CVA tenderness. A/P Assessment and Plan 05/24/17 Patient inadvertently removed clonidine patch this morning. Will decrease dose of clonidine. Start lisinopril at lower dose as outpatient. Continue amlodipine which was added here. Follow-up with vascular surgery, gastroenterology as outpatient 71-year-old male with: //Ischemic stroke status post thrombolysis //Postoperative day 2 right carotid endarterectomy = Carotid plaque on ultrasound = Symptoms Improved status post TPA. = Neurology following. Appreciate assistance. //Hypertension =add amlodipine for blood pressure. On nicardipine drip for blood pressure //History of psoriasis -Continue methotrexate. Discharge Planning s/p carotid endarterectomy on 05/22. pt ff we'll need vascular surgery clearance. Discharge Planning s/p carotid endarterectomy on 05/22. pt ff DC pending VS clearance Kirk Haq MD May 24, 2017 16:26
--- NOTE | 2017-05-24 16:27 | HHI.DS ---
Discharge Summary Admission Date May 19, 2017 at 14:56 Discharge Date: May 24, 2017 Admitting Diagnosis CVA (1) Acute lacunar stroke ICD Code: I63.9 - Cerebral infarction, unspecified Status: Acute (2) HTN (hypertension) ICD Code: I10 - Essential (primary) hypertension Status: Chronic Procedures Right-sided carotid endarterectomy Brief History - From Admission HPI Patient is a 71 year old male BIBEMS as a stroke alert. [place] the dog [place] when he was outside with his friend and he noticed he was having difficulty speaking. He says he had a stroke 20 years ago with the same symptoms, but the symptoms had completely resolved. Symptoms started about 45 minutes prior to arrival. He only has a history of high blood pressure, he denies any blood thinner use. He denies any other symptoms and was in his usual state of health prior to the onset. CT done in the ER was negative for bleed. Patient was administered IV TPA and evaluated by neurology. Patient is being admitted by critical care medicine service to the ICU. I evaluated the patient in the ER. At that time he was laying in the ER stretcher appeared comfortable and not in any acute distress. According to him his speech was significantly better and per his his facial weakness also appeared to be improving. He denied any weakness in either extremities. Denied any loss of consciousness or nausea vomiting headache visual disturbance. History was obtained by discussion with patient and his as well as reviewing records and discussion with ER physician. History PFSH Past Medical History Cerebrovascular Accident: Yes Diminished Hearing: No Hypertension: Yes Immunizations Current: No Tetanus Vaccination: Unknown Influenza Vaccination: No Past Surgical History Surgical History: Unable to Obtain Social History Alcohol Use: Yes (8-10 week) Tobacco Use: No Substance Use: No Allergies-Medications Allergies-Medications (Allergen,Severity, Reaction): Coded Allergies: No Known Allergies (Verified Allergy, Unknown, 04/02/17) Reported Meds & Prescriptions Reported Meds & Active Scripts Active Reported Methotrexate 2.5 Mg Tab 2.5 Mg PO MON,TUE Lisinopril 20 Mg Tab 20 Mg PO DAILY ROS Review of Systems Except as stated in HPI: all other systems reviewed are Neg General / Constitutional: No: Fever, Chills Eyes: No: Blurred Vision HENT: No: Headaches, Lightheadedness Cardiovascular: No: Chest Pain or Discomfort Respiratory: No: Shortness of Breath Gastrointestinal: No: Nausea, Vomiting Musculoskeletal: No: Myalgias Skin: No Rash Neurologic: Positive: Focal Abnormalities, Slurred Speech CBC/BMP: 05/24/17 0605 05/24/17 0605 Significant Findings Laboratory Tests Test 05/23/17 03:55 05/24/17 06:05 White Blood Count 12.2 TH/MM3 (4.0-11.0) 12.3 TH/MM3 (4.0-11.0) Red Blood Count 4.16 MIL/MM3 (4.50-5.90) 3.97 MIL/MM3 (4.50-5.90) Hematocrit 38.3 % (39.0-51.0) 36.8 % (39.0-51.0) Neutrophils (%) (Auto) 95.9 % (16.0-70.0) 88.3 % (16.0-70.0) Lymphocytes (%) (Auto) 2.9 % (9.0-44.0) 7.6 % (9.0-44.0) Neutrophils # (Auto) 11.7 TH/MM3 (1.8-7.7) 10.9 TH/MM3 (1.8-7.7) Lymphocytes # (Auto) 0.4 TH/MM3 (1.0-4.8) 0.9 TH/MM3 (1.0-4.8) Random Glucose 137 MG/DL (74-106) Albumin 3.3 GM/DL (3.4-5.0) 3.3 GM/DL (3.4-5.0) Calcium Level 8.0 MG/DL (8.5-10.1) Sodium Level 135 MEQ/L (136-145) Estimat Glomerular Filtration Rate 83 ML/MIN (>89) 73 ML/MIN (>89) Hemoglobin 12.4 GM/DL (13.0-17.0) Phosphorus Level 2.2 MG/DL (2.5-4.9) Imaging Last Impressions Head CT 05/20/17 1300 Signed Impressions: Service Date/Time: May 14:20 - CONCLUSION: 1. No acute intracranial abnormalities. Rashaad Maria MD Carotid Artery Ultrasound 05/20/17 0000 Signed Impressions: Service Date/Time: May 15:52 - CONCLUSION: 1. Moderate visible plaque, calcified right carotid bifurcation but no hemodynamically significant stenosis identified based on velocity measurements. Mild visible plaque on the left without significant stenosis. Rashaad Maria MD Neck CTA 05/19/17 1302 Signed Impressions: Service Date/Time: Friday, May 19, 2017 13:06 - CONCLUSION: 1. Bulky eccentric calcified plaque extending from the distal right carotid bulb to the origin of the internal carotid artery with resultant 50%% stenosis. 2. Mild left carotid plaque without significant flow limiting stenosis. 3. Mild to moderate stenosis of the left vertebral artery origin secondary to calcified plaque. Leonides Alvarez MD Head CTA 05/19/17 1302 Signed Impressions: Service Date/Time: Friday, May 19, 2017 13:06 - CONCLUSION: Mild diffuse narrowing of the left proximal posterior cerebral artery is noted. Christofer Winn MD Chest X-Ray 05/19/17 0000 Signed Impressions: Service Date/Time: Friday, May 19, 2017 13:19 - CONCLUSION: 1. Minimal basilar atelectasis. No effusion or pneumothorax. Rashaad Maria MD Brain MRI 05/19/17 0000 Signed Impressions: Service Date/Time: Friday, May 19, 2017 16:57 - CONCLUSION: 1. Small subacute infarct in the posterior right frontal lobe without evidence for mass , hemorrhage. Remote lacunar infarct right chavarria radiata. Minimal white matter ischemic change. Rashaad Maria MD Hospital Course MRI as above with small subacute infarct in the posterior right frontal lobe. Carotid imaging showed ulcerated plaque on the right as above. Vascular surgery was consulted, and patient underwent right carotid endarterectomy. started on aspirin, Plavix. Blood pressure elevated, with medications adjusted. No postoperative complications. Patient was discharged home. Will need follow-up with vascular surgery as outpatient. For problem-based summary from most recent progress note, please see below. 05/24/17 Patient inadvertently removed clonidine patch this morning. Will decrease dose of clonidine. Start lisinopril at lower dose as outpatient. Continue amlodipine which was added here. Follow-up with vascular surgery, gastroenterology as outpatient 71-year-old male with: //Ischemic stroke status post thrombolysis //Postoperative day 2 right carotid endarterectomy = Carotid plaque on ultrasound = Symptoms Improved status post TPA. = Neurology following. Appreciate assistance. //Hypertension =add amlodipine for blood pressure. On nicardipine drip for blood pressure //History of psoriasis -Continue methotrexate. Discharge Planning s/p carotid endarterectomy on 05/22. pt ff we'll need vascular surgery clearance. Discharge Planning s/p carotid endarterectomy on 05/22. pt ff DC pending VS clearance Pt Condition on Discharge: Good Discharge Disposition: Discharge Home Discharge Time: > 30 minutes Discharge Instructions DIET: Follow Instructions for: Heart Healthy Diet Activities you can perform: Regular-No Restrictions Follow up Referrals: Neurology - 1 Week with Irving Castro MD PCP Follow-up - 1 Week Vascular Surgery - 2 Weeks with Brando Abraham MD New Medications: Clonidine 168 HR Patch (Clonidine 168 HR Patch) 0.1 Mg/24 Hr Patch 1 PATCH T-DERMAL Q7D for Blood Pressure Management, #4 PATCH 0 Refills Lisinopril (Lisinopril) 5 Mg Tab 5 MG PO DAILY for Blood Pressure Management, #30 TAB 0 Refills Amlodipine (Norvasc) 5 Mg Tab 10 MG PO DAILY for Blood Pressure Management for 30 Days, #60 TAB Aspirin (Px Aspirin) 325 Mg Tab 162 MG PO DAILY for Blood Clot Prevention for 30 Days, #12 TAB Atorvastatin (Atorvastatin) 80 Mg Tab 80 MG PO HS for Cholesterol Management for 30 Days, TAB Clopidogrel (Plavix) 75 Mg Tab 75 MG PO DAILY for Blood Pressure Management for 30 Days, #30 TAB Metoprolol Tartrate (Lopressor) 50 Mg Tab 25 MG PO Q12HR for Blood Pressure Management for 30 Days, TAB Continued Medications: Methotrexate (Methotrexate) 2.5 Mg Tab 2.5 MG PO mon,tue, TAB 0 Refills Discontinued Medications: Lisinopril (Lisinopril) 20 Mg Tab 20 MG PO DAILY, #30 TAB 0 Refills Kirk Haq MD May 24, 2017 16:27
== END 2017-05-24 11:40 | disposition home or self-care (01) | DRG 39 ==
LOC: NEPC 13:01 → NEDA 14:56 → N03A 18:00 → N05A 05-20 18:25 → HCIS 05-22 12:39 → N03B 05-22 16:19 → N06B 05-23 20:49
PROVIDERS: ADMIT Internal Medicine; ATTEND Internal Medicine
PROC: 3E03317 Introduction of Other Thrombolytic into Peripheral Vein, Percutaneous Approach (ICD-10-PCS; 2017-05-19)
PROC: 0T9B70Z Drainage of Bladder with Drainage Device, Via Natural or Artificial Opening (ICD-10-PCS; 2017-05-19)
PROC: 3E0F7GC Introduction of Other Therapeutic Substance into Respiratory Tract, Via Natural or Artificial Opening (ICD-10-PCS; 2017-05-19)
PROC: 03CK0ZZ Extirpation of Matter from Right Internal Carotid Artery, Open Approach (ICD-10-PCS; principal; 2017-05-22 11:19)
DX: I63.9 Cerebral infarction, unspecified (principal); I10 Essential (primary) hypertension; I65.21 Occlusion and stenosis of right carotid artery; R29.810 Facial weakness; R47.81 Slurred speech; Z86.73 Personal history of transient ischemic attack (TIA), and cerebral infarction without residual deficits; L40.9 Psoriasis, unspecified; E78.5 Hyperlipidemia, unspecified
CPT/HCPCS: 70450; 70496; 70498; 70551; 71045; 80048; 80061; 80069; 80307; 81001; 82550; 82607; 82948; 83036; 83735; 84443; 84484; 85025; 85384; 85610; 85652; 85730; 86850; 86900; 86901; 86920; 87641; 88304; 88311; 93005; 93306; 93880; 94150; 95819; 96365; 96375; C1768; J0131; J0690; J1100; J1644; J2270; J2370; J2405; J2710; J2720; J2997; J3010; J7030; J7050; J7120; Q9967